=== PATIENT | male | born 1985 | race Caucasian/White ===

== ENCOUNTER 2018-03-22 16:06 | Outpatient (REF) | payer MEDICAID, SELFPAY ==
[2018-03-22 23:26] LABS: Lithium 0.41 mmol/L (0.60-1.20)
== END 2018-03-22 16:07 ==
LOC: LBN 16:06
PROVIDERS: PCP Internal Medicine; Visit Provider Psychiatry & Neurology Psychiatry
DX: F31.9 Bipolar disorder, unspecified (principal); Z51.81 Encounter for therapeutic drug level monitoring; Z79.899 Other long term (current) drug therapy
CPT/HCPCS: 80178

== ENCOUNTER 2018-04-01 09:09 | Outpatient (REF) | payer MEDICAID, SELFPAY ==
[2018-04-01 20:08] LABS: ALT 31 U/L (12-78); AST 18 U/L (15-37); Albumin 4.3 g/dL (3.4-5.0); Alkaline Phosphatase 71 U/L (46-116); Anion Gap 11.3 mmol/L (3-11); BUN 13 mg/dL (7-18); Bilirubin, Total 0.4 mg/dL (0.2-1.0); CO2 26.7 mmol/L (21.0-32.0); CREATININE 0.86 mg/dL (0.70-1.30); Calcium 8.9 mg/dL (8.5-10.1); Chloride 105 mmol/L (98-107); Cholesterol 192 mg/dL (50-200); Glucose 89 mg/dL (70-100); HDL Cholesterol 36 mg/dL (40-60); LDL CHOLESTEROL 141 mg/dL (<100); Potassium 4.2 mmol/L (3.5-5.1); Sodium 143 mmol/L (136-145); Total Protein 7.6 g/dL (6.4-8.2); Triglyceride 80 mg/dL (30-150)
[2018-04-01 21:01] LABS: Hemoglobin A1C 5.7 % (4.5-6.2)
== END 2018-04-01 09:10 ==
LOC: NCHCN 09:09
PROVIDERS: PCP Internal Medicine; Visit Provider Nurse Practitioner Family
DX: E78.5 Hyperlipidemia, unspecified (principal); E66.01 Morbid (severe) obesity due to excess calories
CPT/HCPCS: 80053; 80061; 83721; 83036

== ENCOUNTER 2018-10-20 08:52 | Outpatient (REF) | payer MEDICAID, SELFPAY ==
[2018-10-20 19:28] LABS: Lithium 0.63 mmol/L (0.60-1.20)
[2018-10-20 19:43] LABS: Anion Gap 7.9 mmol/L (3-11); BUN 14 mg/dL (7-18); CO2 27.1 mmol/L (21.0-32.0); CREATININE 0.98 mg/dL (0.70-1.30); Calcium 9.5 mg/dL (8.5-10.1); Chloride 105 mmol/L (98-107); Cholesterol 208 mg/dL (50-200); Glucose 120 mg/dL (70-100); HDL Cholesterol 37 mg/dL (40-60); LDL CHOLESTEROL 142 mg/dL (<100); Potassium 3.8 mmol/L (3.5-5.1); Sodium 140 mmol/L (136-145); TSH (W/Ref FT4) 1.84 uIU/mL (0.358-3.74); Triglyceride 109 mg/dL (30-150)
== END 2018-10-20 09:12 ==
LOC: NCHCN 08:52
PROVIDERS: Nurse Practitioner Family; PCP Internal Medicine; Visit Provider Internal Medicine
DX: F31.2 Bipolar disorder, current episode manic severe with psychotic features (principal); Z51.81 Encounter for therapeutic drug level monitoring; Z79.899 Other long term (current) drug therapy
CPT/HCPCS: 80048; 80061; 83721; 80178; 84443

== ENCOUNTER 2018-12-13 16:51 | Outpatient (REF) | payer MEDICAID, SELFPAY ==
[2018-12-13 18:31] LABS: HCT 42.1 % (40.0-50.0); HGB 14.6 g/dL (13.5-17.5); Lithium 0.45 mmol/L (0.60-1.20); Mean Corp. HGB Concentration 34.7 g/dL (32.0-36.0); Mean Corpuscular Hemoglobin 29.9 pg (27.0-33.0); Mean Corpuscular Volume 86.1 fL (80-95); Mean Platelet Volume 9.2 fL (8.0-11.0); Platelet Count 268 x1000/uL (130-400); RBC 4.89 m/cumm (4.50-6.00); RBC Distribution Width 12.6 % (11.8-14.1); White Blood Cell Count 8.73 k/cumm (4.4-10.8)
[2018-12-13 18:39] LABS: ALT 36 U/L (12-78); AST 16 U/L (15-37); Albumin 4.4 g/dL (3.4-5.0); Alkaline Phosphatase 65 U/L (46-116); Amylase 40 U/L (25-115); Anion Gap 10.5 mmol/L (3-11); BUN 16 mg/dL (7-18); Bilirubin, Total 0.3 mg/dL (0.2-1.0); CO2 24.5 mmol/L (21.0-32.0); CREATININE 1.01 mg/dL (0.70-1.30); Chloride 103 mmol/L (98-107); Glucose 105 mg/dL (70-100); Lipase 140 U/L (73-393); Potassium 3.3 mmol/L (3.5-5.1); Sodium 138 mmol/L (136-145); Total Protein 7.5 g/dL (6.4-8.2)
[2018-12-13 18:51] LABS: Calcium 9.1 mg/dL (8.5-10.1)
== END 2018-12-13 17:11 ==
LOC: NCHCN 16:51
PROVIDERS: PCP Internal Medicine; Visit Provider Nurse Practitioner Family
DX: F10.20 Alcohol dependence, uncomplicated (principal); Z51.81 Encounter for therapeutic drug level monitoring; E66.01 Morbid (severe) obesity due to excess calories
CPT/HCPCS: 80053; 83690; 85027; 80178; 82150

== ENCOUNTER 2019-10-05 09:01 | Outpatient (REF) | payer MEDICAID, SELFPAY ==
[2019-10-05 19:57] LABS: Anion Gap 9.6 mmol/L (3-11); BUN 18 mg/dL (7-18); CO2 27.4 mmol/L (21.0-32.0); CREATININE 0.87 mg/dL (0.70-1.30); Calcium 9.2 mg/dL (8.5-10.1); Chloride 106 mmol/L (98-107); Glucose 104 mg/dL (74-106); Sodium 143 mmol/L (136-145); TSH (W/Ref FT4) 1.65 uIU/mL (0.36-3.74)
[2019-10-06 09:22] LABS: Calculated LDL 147 mg/dL (<100); Cholesterol 221 mg/dL (<200); HDL Cholesterol 43 mg/dL (40-60); Triglyceride 159 mg/dL (<150)
== END 2019-10-05 09:21 ==
LOC: LBN 09:01
PROVIDERS: PCP Internal Medicine; Visit Provider Psychiatry & Neurology Psychiatry
DX: Z79.899 Other long term (current) drug therapy (principal); Z51.81 Encounter for therapeutic drug level monitoring; F31.2 Bipolar disorder, current episode manic severe with psychotic features
CPT/HCPCS: 80048; 80061; 80178; 84443

== ENCOUNTER 2020-06-25 09:55 | Outpatient (REF) | payer MEDICAID, SELFPAY ==
[2020-06-30 06:22] LABS: Patient Race White; SARS-CoV-2 RNA Undetected (Undetected); SARS-CoV-2 Specimen Source Nasal
== END 2020-06-25 10:15 ==
LOC: NCHCN 09:55
PROVIDERS: PCP Internal Medicine; Visit Provider Physician Assistant
DX: R05 Cough (principal)
CPT/HCPCS: U0003

== ENCOUNTER 2021-06-12 14:59 | Outpatient (REF) | payer MEDICAID, SELFPAY ==
[2021-06-12 19:59] LABS: Anion Gap 10.6 mmol/L (3-11); BUN 16 mg/dL (7-18); CO2 25.4 mmol/L (21.0-32.0); CREATININE 0.9 mg/dL (0.70-1.30); Calcium 9.3 mg/dL (8.5-10.1); Calculated LDL 167 mg/dL (<100); Chloride 105 mmol/L (98-107); Cholesterol 233 mg/dL (<200); Glucose 110 mg/dL (74-106); HDL Cholesterol 40 mg/dL (40-60); Potassium 3.8 mmol/L (3.5-5.1); Sodium 141 mmol/L (136-145); TSH 1.58 uIU/mL (0.36-3.74); Triglyceride 130 mg/dL (<150)
[2021-06-12 20:32] LABS: Lithium 0.6 mmol/l (0.6-1.2)
== END 2021-06-12 15:00 | disposition home or self-care (01) ==
LOC: NCHCN 14:59
PROVIDERS: PCP Internal Medicine; Visit Provider Physician Assistant
DX: E78.5 Hyperlipidemia, unspecified (principal); Z51.81 Encounter for therapeutic drug level monitoring; E66.01 Morbid (severe) obesity due to excess calories; F31.2 Bipolar disorder, current episode manic severe with psychotic features
CPT/HCPCS: 80048; 80061; 80178; 84443

== ENCOUNTER 2021-11-10 09:09 | Outpatient (REF) | payer MEDICAID, SELFPAY ==
[2021-11-10 19:32] LABS: Abs Immature Grans 0.04 10^3/uL (0.0-0.06); Absolute Basophil Count 0.02 10^3/uL (0.0-0.2); Absolute Eosinophil Count 0.17 10^3/uL (0.0-0.7); Absolute Lymphocyte Count 2.45 10^3/uL (1.2-3.4); Absolute Monocyte Count 0.55 10^3/uL (0.1-0.8); Absolute Neutrophil Count 3.63 10^3/uL (1.2-6.7); Basophils % 0.3; Eosinophils % 2.5; HCT 45.3 % (40.0-50.0); HGB 15.3 g/dL (13.5-17.5); Immature Grans % 0.6; Lymphocytes % 35.7; MCH 28.9 pg (27.0-33.0); MCHC 33.8 % (32.0-36.0); MCV 85.6 fL (80-95); MPV 9.5 fL (8.0-11.0); Neutrophils % 52.9; Nucleated RBC 0 %; Platelet Count 251 10^3/uL (130-400); RBC 5.29 10^6/uL (4.36-5.78); RDW 12.7 % (11.8-14.1); RDW-SD 39.5 fL; WBC 6.86 10^3/uL (4.4-10.8)
[2021-11-10 19:39] LABS: Hemoglobin A1C 5.6 % (<5.7)
[2021-11-10 20:19] LABS: Vitamin D 25 Total 18.3 ng/mL (30-100)
[2021-11-10 20:21] LABS: ALT 48 U/L (16-63); AST 18 U/L (15-37); Albumin 4.4 g/dL (3.4-5.0); Alkaline Phosphatase 67 U/L (46-116); Anion Gap 10.1 mmol/L (3-11); BUN 14 mg/dL (7-18); Bilirubin, Total 0.4 mg/dL (0.2-1.0); C-Reactive Protein 0.74 mg/dL (0.0-0.3); CO2 22.9 mmol/L (21.0-32.0); CREATININE 0.9 mg/dL (0.70-1.30); Calculated LDL 154 mg/dL (<100); Chloride 106 mmol/L (98-107); Cholesterol 229 mg/dL (<200); Ferritin 477 ng/mL (26-388); Folate 15.5 ng/mL (8.6-20.0); Glucose 114 mg/dL (74-106); HDL Cholesterol 46 mg/dL (40-60); Magnesium 2.3 mg/dL (1.8-2.4); Potassium 3.9 mmol/L (3.5-5.1); Sodium 139 mmol/L (136-145); TSH 2.56 uIU/mL (0.36-3.74); Total Protein 7.8 g/dL (6.4-8.2); Triglyceride 149 mg/dL (<150); Vitamin B12 496 pg/mL (193-986)
[2021-11-10 20:38] LABS: FREE T4 1.15 ng/dL (0.76-1.46)
[2021-11-11 17:15] LABS: Lithium (UVM) 0.6 mmol/L (See Note)
[2021-11-11 17:39] LABS: T3,Free 3.7 pg/mL (2.8-5.3)
== END 2021-11-10 09:10 | disposition home or self-care (01) ==
LOC: LBN 09:09
PROVIDERS: PCP Internal Medicine; Visit Provider Psychiatry & Neurology Psychiatry
DX: F31.2 Bipolar disorder, current episode manic severe with psychotic features (principal); Z79.899 Other long term (current) drug therapy
CPT/HCPCS: 80053; 80061; 82306; 80178; 82607; 82728; 82746; 83036; 83735; 84439; 84443; 84481; 84630; 85025; 86140

== ENCOUNTER 2023-01-26 18:47 | Emergency (ER) | payer MEDICAID, SELFPAY ==
[2023-01-26 18:49] VITALS: BP 175/93; PULSE 105; RESP 18; TEMP 36.9; O2SAT 98
--- NOTE | 2023-01-26 20:10 | ED.GENADUL_ITS ---
Discharge Plan Disposition Patient Disposition: Home Discharge Details Clinical Impression: Right facial swelling Primary Care Provider: Jermaine Wolfe ED Provider: Primo Hanna Home Meds and New Rx's Prescriptions: New ketorolac 10 mg tablet 10 mg PO TID PRN (Reason: pain) Qty: 15 0RF Continued lithium carbonate 300 mg tablet extended release 1,200 mg PO DAILY olanzapine [Zyprexa] 10 mg tablet 10 mg PO DAILY lorazepam 2 MG tablet 2 mg PO BID Patient Comments: 12/01/17-0.5mg PO BID per pt. Discontinued oxycodone 5 mg tablet 5 - 10 mg PO Q4H MDD 10 PRN (Reason: pain) Qty: 50 0RF Patient Comments: patient reports he does not take this anymore. Discharge Instructions Instructions: Parotid Duct Obstruction (ED) Additional Instructions: Please continue to take your Metronidazole and Augmentin as prescribed. You may use the pain medication but please do not take any lblr-fgb-orgvdmv NSAIDs with this as this could cause significant complications. We have placed a referral for you to follow-up with the ENT and please call their office tomorrow afternoon for arrangement of your follow-up appointment. If you have any new or significant worsening of symptoms return to the emergency department immediately for reassessment You did have slight increase of your liver function test which at this time are nonconcerning but please follow-up with your primary care provider for reassessment of these labs. Referrals: [facility] [Provider Group] - 2 days Discharge Data Discharge Date/Time-TO BE ENTERED AT DEPARTURE: 01/26/23 23:48 Medical Decision Making <Primo Hanna NP - Last Filed: 01/27/23 18:12> Patient presenting to the emergency department for chief complaint of right facial swelling. He states approximately 3 weeks ago he had his wisdom tooth removed on the right lower. He had typical healing for the first couple days and then noticed significant increase in pain and discomfort with continued swelling. Over the last week or so he has had noted increase in swelling and redness to the right side of his face. Patient denies fever chills, does state some associated ear pain, no swelling to tongue, lips or mouth, no difficulty breathing swallowing, no headaches no other symptoms noted. Physical exam does show significant erythema warmth and swelling to right parotid gland ENT exam is otherwise unremarkable. No palpable abscess noted around dental extraction no swelling to the tongue. no signs of deep neck space infection ( Retropharyngeal abscess, Luke's angina, Parapharyngeal space infection, Peritonsillar Abscess ([employer])) or Epiglottitis. Pt non toxic and stable. Given that patient is already been on antibiotics and switched to Augmentin and Flagyl which she has taken for 5 days not seen any improvement we will plan on checking patient's labs and CT imaging. Pending results we will give patient ketorolac and Decadron Reviewed patient's labs and CBC is completely normal and unremarkable, CMP shows slightly low potassium at 3.1 which we will orally replete otherwise patient has slight elevation of glucose AST and ALT along with total protein. Patient informed that these were elevated but I do not feel that this is contributing to patient's cause to be a emergency department will have patient follow-up with primary care provider due to elevated LFTs Reviewed CT imaging along with radiologist interpretation that shows no acute findings. Did reassess patient and he noted significant improvement with the ketorolac and Decadron. I feel this is reassuring but still odd of what is causing patient's symptoms. Given duration of symptoms being greater than 3 weeks will refer patient to ENT but will have patient continue his antibiotics. After discussion of diagnosis and plan of care patient has no further needs, questions, or concerns and states clear understanding to return to the emergency department for any worsening symptoms. This documentation was generated using [employer] dictation system, please disregard any oddities of phrase or misspellings. Imaging Data Radiologic Study: Imaging: CT Scan Radiologist's impression: dottie(s) PROCEDURE INFORMATION: Exam: CT Neck With Contrast Exam date and time: 01/26/2023 9:50 PM Age: 37 years old Clinical indication: Pain; Other: R sided facial swelling; Other: Right facial from ear/jaw area into neck; Prior surgery; Surgery date: <1 month; Surgery type: Tooth pulled; Patient HX: Right sided facial swelling- ? of parotiditis TECHNIQUE: Imaging protocol: Computed tomography of the neck with contrast. Radiation optimization: All CT scans at this facility use at least one of these dose optimization techniques: automated exposure control; mA and/or kV adjustment per patient size (includes targeted exams where dose is matched to clinical indication); or iterative reconstruction. Contrast material: OMNIPAQUE 350; Contrast volume: 100 ml; Contrast route: INTRAVENOUS (IV); COMPARISON: No relevant prior studies available. FINDINGS: Paranasal sinuses: Mucosal polyp versus retention cyst within left maxillary sinus. Otherwise, paranasal sinuses clear. Pharynx: Unremarkable. No significant tonsillar enlargement. Larynx: Unremarkable. Epiglottis is normal. Prevertebral and retropharyngeal spaces: Unremarkable. Salivary glands: Normal. Glands are normal in size. Thyroid: Normal. No enlarged or calcified nodules. Lymph nodes: Unremarkable. No lymphadenopathy. Trachea: Visualized trachea is unremarkable. Lungs: Unremarkable as visualized. Bones/joints: Unremarkable. No acute fracture. Soft tissues: Unremarkable. No significant soft tissue swelling. IMPRESSION: No masses or collections identified. No evidence for parotitis. Lab Data Lab results reviewed: Yes I reviewed the patient's lab results. HPI <Primo Hanna NP - Last Filed: 01/27/23 18:12> General Mode of arrival: ambulatory . Date/Time Provider Initiated Documentation: 01/26/23 20:10 . Limitations to Documentation: no limitations . Information obtained by: patient and RN notes reviewed . History of Present Illness 37 year old M presents to the emergency department with the chief complaint of Right-sided facial pain and swelling, described as moderate, Quality is described as aching, and is localized to the face. Patient started experiencing this week(s) (3) and it has been constant. No relieving factors improve symptom(s), Other factors that worsen symptoms (Dental tooth extraction) . Patient did receive the following treatments prior to arrival, other (Antibiotics) Related Data Home Medications Medication Instructions Recorded Confirmed lorazepam 2 mg tablet 2 mg PO BID 09/25/13 01/26/23 lithium carbonate 300 mg 1,200 mg PO DAILY 05/07/22 01/26/23 tablet,extended release olanzapine 10 mg tablet (Zyprexa) 10 mg PO DAILY 05/07/22 01/26/23 ketorolac 10 mg tablet 10 mg PO TID PRN pain #15 tabs 01/26/23 Previous Rx's Medication Instructions Recorded ketorolac 10 mg tablet 10 mg PO TID PRN pain #15 tabs 01/26/23 Allergies Allergy/AdvReac Type Severity Reaction Status Date / Time banana [Banana] AdvReac unknown Unverified 01/26/23 21:13 <Moriah Matias MD - Last Filed: 01/27/23 01:49> HPI Narrative: Pt. not seen by me. General Stated Complaint: DentalOral SHAVON: 4 Review of Systems <Primo Hanna NP - Last Filed: 01/27/23 18:12> Constitutional Constitutional: Denies chills, Denies fever(s) and Denies headache(s) ENT Ears, Nose, Mouth, and Throat: Reports as per HPI, Denies bleeding gums, Denies change in voice, Reports dental pain, Denies ear discharge, Reports otalgia, Reports facial pain, Denies headache(s), Denies hoarseness, Reports mouth pain, Denies neck pain and Denies sinus pain Cardiovascular Cardiovascular: Denies chest pain and Denies dyspnea Respiratory Respiratory: Denies cough and Denies dyspnea Gastrointestinal Gastrointestinal: Denies abdominal pain Musculoskeletal Musculoskeletal: Denies neck pain Integumentary/Breasts Skin/Breast: Reports erythema and Reports skin swelling Neurologic Neurologic: Denies headache(s) PFSH <Primo Hanna NP - Last Filed: 01/27/23 18:12> All Active Problems Right facial swelling (Acute) Testicular pain (Acute) Pain (Acute) Social History Smoking/Tobacco Use Status: Former Tobacco Use Smoking risk assessment performed?: Yes Alcohol Intake: current Alcohol Intake frequency: a few times a week Drug use: Daily Substance use type: does not use Do you feel safe at home: Yes Do you feel safe in your relationship?: Yes Exam <Primo Hanna NP - Last Filed: 01/27/23 18:12> Const General: cooperative, healthy appearing, comfortable, no acute distress and not ill appearing Orientation: alert, awake and oriented x3 HENMT Head: normal to inspection and normocephalic Ears: hearing grossly normal bilaterally, external ears normal, TM's normal bilaterally and mastoids normal General nose exam: external nose normal and nares normal Face and sinus: erythema on the right (Parotid gland) and edema on the right (Parotid gland) Mouth: oral mucosae normal, lip normal, tongue normal, no audible dysphonia, no drooling and no trismus Throat: uvula midline, no peritonsillar masses and other (Recent extraction tooth #32) Neck Neck: normal visual inspection, full ROM and no meningeal signs Resp Effort & Inspection: normal respiratory effort, able to speak in complete sentences and no stridor Auscultation: clear to auscultation bilaterally Cardio Rate: regular rate Rhythm: regular rhythm Heart Sounds: S1 normal and S2 normal Skin General skin exam: no rashes or lesions noted <Moriah Matias MD - Last Filed: 01/27/23 01:49> Vital Signs Vital signs: Vital Signs Temperature 36.9 C 01/26/23 18:49 Pulse 105 H 01/26/23 18:49 Respiratory Rate 18 01/26/23 18:49 Blood Pressure 175/93 H 01/26/23 18:49 Pulse Oximetry 98 01/26/23 18:49 Temperature 36.9 C 01/26/23 18:49 Temperature Source Oral 01/26/23 18:49 Pulse 105 H 01/26/23 18:49 Respiratory Rate 18 01/26/23 18:49 Respiratory Effort Normal 01/26/23 18:52 Blood Pressure 175/93 H 01/26/23 18:49 Pulse Oximetry 98 01/26/23 18:49 Oxygen Delivery Method Room Air 01/26/23 18:49 Oxygen Flow Rate 0 01/26/23 18:49 Pain Level 7 01/26/23 18:49 PAWSS <Primo Hanna NP - Last Filed: 01/27/23 18:12> Result: 0 <Moriah Matias MD - Last Filed: 01/27/23 01:49> Have you Been Recently Intoxicated or Drunk Within the Last 30 days?: No Have you Ever Experienced Previous Episodes of Alcohol Withdrawal?: No Have you ever Experienced Withdrawal Seizures?: No Have you ever Experienced Delirium Tremens(DT)s?: No Have you ever undergone Alcohol Rehabilitation Treatment (i.e, inpt ot outpatient treatment programs)?: No Have you ever Experienced Blackouts?: No Have you ever Combined Alcohol with other Downers within the last 90 days?: No Have you ever Combined Alcohol with any other Substance of Abuse during the last 90 days?: No Positive Blood Alcohol level on Presentation? [PCS.BAL]: No Evidence of Increased Autonomic Activity (i.e. HR>120, tremor, sweating, agitation, nausea)?: No Result: 0
--- NOTE | 2023-01-26 21:07 | DI.CT_ITS ---
Exam(s) CT NECK W EXAM: CT NECK W INDICATION: right sided facial swelling- ? of parotiditis. COMPARISON: No exams were available for comparison TECHNIQUE: FINDINGS: VISUALIZED PARANASAL SINUSES: There is a prominent post inflammatory retention cyst in the left maxil fina sinus, not associated with a fluid level. Remainder of the paranasal sinuses are unremarkable. NASOPHARYNX: Unremarkable ORODENTAL: Unremarkable. OROPHARYNX: Unremarkable. No masses evident. HYPOPHARYNX: Unremarkable. Valleculae and epiglottis and aryepiglottic folds appear normal. VOCAL CORDS: Unremarkable. No masses evident. Subglottic airway appears unremarkable. THYROID GLAND: Unremarkable. Normal size and no obvious nodules. SALIVARY GLANDS: Unremarkable. No significant findings in the parotid and submandibular glands. LYMPH NODES: There is no adenopathy evident in the neck and supraclavicular regions. OTHER: VISUALIZED LUNG APICES: No significant findings. IMPRESSION: 1. No evidence abnormal mass, fluid collection, nor lymphadenopathy in the neck. 2. Salivary glands appear unremarkable, as per request. RADIATION DOSE DELIVERED: 762.07mGy.cm Total DLP DATA REPOSITORY: All CT scans at this facility are submitted to the National Radiology Data Registry (NRDR) Dose Index Registry (DIR) with the [employer] (ACR). RADIATION OPTIMIZATION: All CT scans at this facility use at least one of these dose optimization te chniques: automated exposure control; mA and/or kV adjustment per patient size (includes targeted exa ms where dose is matched to clinical indication); or iterative reconstruction.
[2023-01-26] MEDS: Dexamethasone 10 MG/ML VIAL IVP (21:44)
[2023-01-26] MEDS: Ketorolac 15 MG/ML VIAL IVP (21:44)
[2023-01-26] MEDS: Normal Saline - Diluent 50 ML VIAL IJ (21:49)
[2023-01-26 21:54] LABS: Abs Immature Grans 0.04 10^3/uL (0.0-0.06); Absolute Basophil Count 0.04 10^3/uL (0.0-0.2); Absolute Eosinophil Count 0.14 10^3/uL (0.0-0.7); Absolute Lymphocyte Count 2.42 10^3/uL (1.2-3.4); Absolute Monocyte Count 0.61 10^3/uL (0.1-0.8); Absolute Neutrophil Count 6.17 10^3/uL (1.2-6.7); Basophils % 0.4; Eosinophils % 1.5; HCT 44.5 % (40.0-50.0); HGB 15.3 g/dL (13.5-17.5); Immature Grans % 0.4; Lymphocytes % 25.7; MCH 28.8 pg (27.0-33.0); MCHC 34.4 % (32.0-36.0); MCV 84 fL (80-95); MPV 8.3 fL (8.0-11.0); Monocytes % 6.5; Neutrophils % 65.5; Platelet Count 271 10^3/uL (130-400); RBC 5.31 10^6/uL (4.36-5.78); RDW 12.4 % (11.8-14.1); RDW-SD 37.2 fL; WBC 9.42 10^3/uL (4.4-10.8)
[2023-01-26] MEDS: Omnipaque 350 MG/ML 100 ML BTL IJ (22:00)
[2023-01-26] MEDS: Normal Saline Flush 10 ML SYR IVP (22:06)
[2023-01-26 22:15] LABS: ALT 107 U/L (16-63); AST 53 U/L (15-37); Albumin 4.2 g/dL (3.4-5.0); Alkaline Phosphatase 71 U/L (46-116); Anion Gap 9.5 mmol/L (3-11); BUN 14 mg/dL (7-18); Bilirubin, Total 0.3 mg/dL (0.2-1.0); CO2 23.5 mmol/L (21.0-32.0); Calcium 9.4 mg/dL (8.5-10.1); Chloride 104 mmol/L (98-107); Estimated GFR 100.03 (mL/min/1.73m2); Glucose 144 mg/dL (74-106); Potassium 3.1 mmol/L (3.5-5.1); Sodium 137 mmol/L (136-145); Total Protein 8.5 g/dL (6.4-8.2)
[2023-01-26 22:45] VITALS: BP 168/80; PULSE 92; RESP 16; O2SAT 99
--- NOTE | 2023-01-26 23:25 | DI.VRAD_ITS ---
PROCEDURE INFORMATION: Exam: CT Neck With Contrast Exam date and time: 01/26/2023 9:50 PM Age: 37 years old Clinical indication: Pain; Other: R sided facial swelling; Other: Right facial from ear/jaw area into neck; Prior surgery; Surgery date: <1 month; Surgery type: Tooth pulled; Patient HX: Right sided facial swelling- ? of parotiditis TECHNIQUE: Imaging protocol: Computed tomography of the neck with contrast. Radiation optimization: All CT scans at this facility use at least one of these dose optimization techniques: automated exposure control; mA and/or kV adjustment per patient size (includes targeted exams where dose is matched to clinical indication); or iterative reconstruction. Contrast material: OMNIPAQUE 350; Contrast volume: 100 ml; Contrast route: INTRAVENOUS (IV); COMPARISON: No relevant prior studies available. FINDINGS: Paranasal sinuses: Mucosal polyp versus retention cyst within left maxillary sinus. Otherwise, paranasal sinuses clear. Pharynx: Unremarkable. No significant tonsillar enlargement. Larynx: Unremarkable. Epiglottis is normal. Prevertebral and retropharyngeal spaces: Unremarkable. Salivary glands: Normal. Glands are normal in size. Thyroid: Normal. No enlarged or calcified nodules. Lymph nodes: Unremarkable. No lymphadenopathy. Trachea: Visualized trachea is unremarkable. Lungs: Unremarkable as visualized. Bones/joints: Unremarkable. No acute fracture. Soft tissues: Unremarkable. No significant soft tissue swelling. IMPRESSION: No masses or collections identified. No evidence for parotitis. The findings were verbally communicated via telephone conference with VAZQUEZ MENDOZA at 11:25 PM EDT on 01/26/2023. The findings were acknowledged and understood. Dictated and Authenticated by: Bill Rae MD. Ordering:GILDA Tillman MD
[2023-01-26] MEDS: Potassium Chloride 20 MEQ TABCR 40 MEQ PO (23:27)
--- NOTE | 2023-01-27 00:26 | NUR.NOTE ---
Referral faxed to [facility] to f/u within the next couple of days for persistent facial swelling on antibiotics.Nursing Note:
== END 2023-01-26 23:48 | disposition home or self-care (01) ==
PROVIDERS: Emergency Provider Nurse Practitioner Family; PCP Internal Medicine
DX: R22.0 Localized swelling, mass and lump, head (principal)
CPT/HCPCS: 36415; 70491; 80053; 96374; 96375; 99285; 85025; 99284; J1100; J1885; J3490

== ENCOUNTER 2023-04-02 18:22 | Outpatient (REF) | payer MEDICAID, SELFPAY ==
--- OUTSIDE RECORDS SUMMARY | 2023-04-02 18:24 | XMS_ITS | Continuity of Care Document ---
Author Name Unknown Organization [facility] Address [address] [place] [address] Care Team Providers Care Display Fabricator Name Role Phone [facility] Primary [facility] Physician Encounter [facility] Date(s): 05/10/22 - 05/10/[address] [id number] Encounter Diagnosis Otalgia of left ear(Discharge Diagnosis) - 05/10/22 Low back strain(Discharge Diagnosis) - 05/10/22 Discharge Disposition: Home Attending Physician: James Yang MD Admitting Physician: James Yang MD Allergies, Adverse Reactions, Alerts No Known Medication Allergies Substance Reaction Severity Status Banana Unknown Active Functional Status 05/10/22 Family Member Travel History No recent t ravel Recent Travel History No recent travel Other exposure to Infectious Disease Non e Medications !-Augmentin 875 mg-125 mg oral tablet 1 tab, Oral, every 12 hr, # 20 tab, 0 Refill(s), Pharmacy: [facility], 183, cm, 05/10/22 20:32:00 EDT, Height/Length Dosing, 147.42, kg, 05/10/22 20:32:00 EDT, Weight Dosing Start Date: 05/10/22 Stop Date: 05/20/22 Status: Ordered lithium 0 Refill(s) Start Date: 05/10/22 Status: Ordered LORazepam 0 Refill(s) Start Date: 05/10/22 Status: Ordered Medrol 4 mg oral tablet 1 packets, Oral, Daily, as directed on package labeling, # 21 tab, 0 Refill(s), Pharmacy: [facility], 183, cm, 05/10/22 20:32:00 EDT, Height/Length Dosing, 147.42, kg, 05/10/22 20:32:00 EDT, Weight Dosing Start Date: 05/10/22 Stop Date: 05/16/22 Status: Ordered ZyPREXA 0 Refill(s) Start Date: 05/10/22 Status: Ordered Problem List No Known Problems Vital Signs Most recent to oldest [Reference Range]: 1 Temperature Temporal Artery [36-38 Deg C ] 37 Deg C (05/10/22 8:16 PM) Peripheral Pulse Rate [60-100 bpm] 89 bp m (05/10/22 8:16 PM) Respiratory Rate [12-24 br/min] 18 br/mi n (05/10/22 8:16 PM) Blood Pressure [90-140/60-90 mmHg] 143/7 1mmHg *HI* (05/10/22 8:16 PM) Weight Dosing 147.42 kg (05/10/22 8:32 PM) Weight Estimated 147.42 kg (05/10/22 8:16 PM) Height/Length Dosing 183.000 cm (05/10/22 8:32 PM) Height/Length Estimated 183.000 cm (05/10/22 8:16 PM) Social History Social History Type Response Tobacco Never tobacco user T obacco Use:. Sex Male Hospital Discharge Instructions Patient Education 05/10/2022 19:45:24 Lumbar Strain Lumbar Strain A lumbar strain, which is sometimes called a low-back strain, is a stretch or tear in a muscle or the strong cords of tissue that attach muscle to bone (tendons) in the lower back (lumbar spine). This type of injury occurs when muscles or tendons are torn or are stretched beyond their limits. Lumbar strains can range from mild to severe. Mild strains may involve stretching a muscle or tendon without tearing it. These may heal in 1???2 weeks. More severe strains involve tearing of muscle fibers or tendons. These will cause more pain and may take 6???8 weeks to heal. What are the causes? This condition may be caused by: ??? Trauma, such as a fall or a hit to the body. ??? Twisting or overstretching the back. This may result from doing activities that need a lot of energy, such as lifting heavy objects. What increases the risk? This injury is more common in: ??? Athletes. ??? People with obesity. ??? People who do repeated lifting, bending, or other movements that involve their back. What are the signs or symptoms? Symptoms of this condition may include: ??? Sharp or dull pain in the lower back that does not go away. The pain may extend to the buttocks. ??? Stiffness or limited range of motion. ??? Sudden muscle tightening (spasms). How is this diagnosed? This condition may be diagnosed based on: ??? Your symptoms. ??? Your medical history. ??? A physical exam. ??? Imaging tests, such as: ??? X-rays. ??? MRI. How is this treated? Treatment for this condition may include: ??? Rest. ??? Applying heat and cold to the affected area. ??? Etgq-yrm-dpijfqj medicines to help relieve pain and inflammation, such as NSAIDs. ??? Prescription pain medicine and muscle relaxants may be needed for a short time. ??? Physical therapy. Follow these instructions at home: Managing pain, stiffness, and swelling ??? If directed, put ice on the injured area during the first 24 hours after your injury. ??? Put ice in a plastic bag. ??? Place a towel between your skin and the bag. ??? Leave the ice on for 20 minutes, 2???3 times a day. ??? If directed, apply heat to the affected area as often as told by your health care provider. Usethe heat source that your health care provider recommends, such as a moist heat pack or a heating pad. ??? Place a towel between your skin and the heat source. ??? Leave the heat on for 20???30 minutes. ??? Remove the heat if your skin turns bright red. This is especially important if you are unable to feel pain, heat, or cold. You may have a greater risk of getting burned. Activity ??? Rest and return to your normal activities as told by your health care provider. Ask your healthcare provider what activities are safe for you. ??? Do exercises as told by your health care provider. Medicines ??? Take pbhu-awd-gjitaty and prescription medicines only as told by your health care provider. ??? Ask your health care provider if the medicine prescribed to you: ??? Requires you to avoid driving or using heavy machinery. ??? Can cause constipation. You may need to take these actions to prevent or treat constipation: ??? Drink enough fluid to keep your urine pale yellow. ??? Take dkiq-uln-znwgbhf or prescription medicines. ??? Eat foods that are high in fiber, such as beans, whole grains, and fresh fruits and vegetables. ??? Limit foods that are high in fat and processed sugars, such as fried or sweet foods. Injury prevention To prevent a future low-back injury: ??? Always warm up properly before physical activity or sports. ??? Cool down and stretch after being active. ??? Use correct form when playing sports and lifting heavy objects. Bend your knees before you liftheavy objects. ??? Use good posture when sitting and standing. ??? Stay physically fit and keep a healthy weight. ??? Do at least 150 minutes of moderate-intensity exercise each week, such as brisk walking or water aerobics. ??? Do strength exercises at least 2 times each week. General instructions ??? Do not use any products that contain nicotine or tobacco, such as cigarettes, e-cigarettes, andchewing tobacco. If you need help quitting, ask your health care provider. ??? Keep all follow-up visits as told by your health care provider. This is important. Contact a health care provider if: ??? Your back pain does not improve after 6 weeks of treatment. ??? Your symptoms get worse. Get help right away if: ??? Your back pain is severe. ??? You are unable to stand or walk. ??? You develop pain in your legs. ??? You develop weakness in your buttocks or legs. ??? You have difficulty controlling when you urinate or when you have a bowel movement. ??? You have frequent, painful, or bloody urination. ??? You have a temperature over 101.0??F (38.3??C) Summary ??? A lumbar strain, which is sometimes called a low-back strain, is a stretch or tear in a muscle or the strong cords of tissue that attach muscle to bone (tendons) in the lower back (lumbar spine). ??? This type of injury occurs when muscles or tendons are torn or are stretched beyond their limits. ??? Rest and return to your normal activities as told by your health care provider. If directed, apply heat and ice to the affected area as often as told by your health care provider. ??? Take eoom-yqz-nefbvoh and prescription medicines only as told by your health care provider. ??? Contact a health care provider if you have new or worsening symptoms. This information is not intended to replace advice given to you by your health care provider. Make sure you discuss any questions you have with your health care provider. Document Revised: 06/01/2019 Document Reviewed: 06/01/2019 [employer] Patient Education ?? 2021 [employer]. Follow Up Care 05/10/2022 20:16:43 With:Jermaine Alvarenga MD Address: [place] [address]- When:2 to 4 days Comments:For any persistent symptoms Patient Care team information Personnel Name: Jermaine Alvarenga MD Address: Address: [address]
--- OUTSIDE RECORDS SUMMARY | 2023-04-02 18:24 | XMS_ITS | Continuity of Care Document ---
Author Name Unknown Organization 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 Role Phone au [facility] Primary [facility] Physician Encounter [facility] Date(s): 06/15/22 - 06/15/[address] [id number] Discharge Disposition: Home or Self Care Attending Physician: Nicolas Flower MD Admitting Physician: Nicolas Flower MD Referring Physician: Nicolas Flower MD Allergies, Adverse Reactions, Alerts No Known Medication Allergies Substance Reaction Severity Status Banana Unknown Active Assessment and Plan Diagnostic Tests Pending * Homocysteine, Total, P JOSÉ 06/15/22 Medications !-Augmentin 875 mg-125 mg oral tablet 1 tab, Oral, every 12 hr, # 20 tab, 0 Refill(s), Pharmacy: [id number], 183, cm, 05/10/22 20:32:00 EDT, Height/Length Dosing, 147.42, kg, 05/10/22 20:32:00 EDT, Weight Dosing Start Date: 05/10/22 Stop Date: 05/20/22 Status: Ordered lithium 0 Refill(s) Start Date: 05/10/22 Status: Ordered LORazepam 0 Refill(s) Start Date: 05/10/22 Status: Ordered Medrol 4 mg oral tablet 1 packets, Oral, Daily, as directed on package labeling, # 21 tab, 0 Refill(s), Pharmacy: [id number], 183, cm, 05/10/22 20:32:00 EDT, Height/Length Dosing, 147.42, kg, 05/10/22 20:32:00 EDT, Weight Dosing Start Date: 05/10/22 Stop Date: 05/16/22 Status: Ordered ZyPREXA 0 Refill(s) Start Date: 05/10/22 Status: Ordered Problem List No Known Problems Results Laboratory List Name Date CBC w/ Diff 06/15/22 Comprehensive Metabolic Panel 06/15/22 Folate Level 06/15/22 Free T4 06/15/22 Hemoglobin A1c 06/15/22 Lipid Panel 06/15/22 Fries Level 06/15/22 Magnesium Level 06/15/22 Thyroid Stimulating Hormone 06/15/22 Vitamin B12 Level 06/15/22 Automated Diff 06/15/22 Most recent to oldest [Reference Range]: 1 WBC [5.0-10.0 x10^3/mcL] 8.2 x10^3/mcL (06/15/22 9:39 AM) RBC [4.6-6.0 x10^6/mcL] 5.1 x10^6/mcL (06/15/22 9:39 AM) Neutro Auto [40.0-75.0 %] 58.0 % (06/15/22 9:39 AM) Lymph Auto [20.0-50.0 %] 32.7 % (06/15/22 9:39 AM) Early Auto [2.0-15.0 %] 6.5 % (06/15/22 9:39 AM) Basophil Auto [0.0-1.0 %] 0.5 % (06/15/22 9:39 AM) BUN [7-18 mg/dL] 18 mg/dL (06/15/22 9:39 AM) Cholesterol Total [50-200 mg/dL] 208 mg/ dL *HI* (06/15/22 9:39 AM) LDL [0-130 mg/dL] 142 mg/dL *HI* (06/15/22 9:39 AM) Glucose Level [74-106 mg/dL] 101 mg/dL (06/15/22 9:39 AM) Potassium Level [3.5-5.1 mmol/L] 4.1 mmo l/L (06/15/22 9:39 AM) MCV [80.0-103.0 fL] 85.7 fL (06/15/22 9:39 AM) HDL [40-60 mg/dL] 41 mg/dL (06/15/22 9:39 AM) T4 Free [0.76-1.46 ng/dL] 1.02 ng/dL (06/15/22 9:39 AM) AST [15-37 unit/L] 15 unit/L (06/15/22 9:39 AM) ALT [16-63 unit/L] 41 unit/L (06/15/22 9:39 AM) MCHC [31.0-35.0 g/dL] 34.4 g/dL (06/15/22 9:39 AM) Sodium Level [136-145 mmol/L] 138 mmol/L (06/15/22 9:39 AM) Folate Level [8.6-58.9 ng/mL] 15.0 ng/mL (06/15/22:39 AM) Hct [41.0-51.0 %] 43.9 % (06/15/22 9:39 AM) Triglycerides [0-150 mg/dL] 123 mg/dL (06/15/22 9:39 AM) Calcium Level [8.5-10.1 mg/dL] 9.0 mg/dL (06/15/22 9:39 AM) Albumin Level [3.4-5.0 g/dL] 4.4 g/dL (06/15/22 9:39 AM) Protein Total [6.4-8.2 g/dL] 7.9 g/dL (06/15/22 9:39 AM) MCH [26.0-32.0 pg] 29.5 pg (06/15/22 9:39 AM) Magnesium Level [1.8-2.4 mg/dL] 2.2 mg/d L (06/15/22 9:39 AM) Neutro Absolute 4.8 x10^3/mcL *NA* (06/15/22 9:39 AM) Bilirubin Total [0.2-1.0 mg/dL] 0.4 mg/d L (06/15/22 9:39 AM) Hgb [14.0-18.0 g/dL] 15.1 g/dL (06/15/22 9:39 AM) B12 Level [193-986 pg/mL] 673 pg/mL (06/15/22 9:39 AM) Alk Phos [46-146 unit/L] 61 unit/L (06/15/22 9:39 AM) Platelets [130-450 x10^3/mcL] 243 x10^3/ mcL (06/15/22 9:39 AM) Fries Level [0.60-1.20 mmol/L] 0.63 mm ol/L (06/15/22 9:39 AM) CO2 [21-32 mmol/L] 27 mmol/L (06/15/22 9:39 AM) TSH [0.358-3.740 mcIntlUnit/mL] 1.968 mc IntlUnit/mL (06/15/22 9:39 AM) eGFR Non-AA [>=60] 108 (06/15/22 9:39 AM) eGFR AA [>=60] 108 (06/15/22 9:39 AM) Hemoglobin A1c [4.0-6.0 %] 5.6 % (06/15/22 9:39 AM) Chloride Level [98-107 mmol/L] 104 mmol/ L (06/15/22 9:39 AM) RDW-CV [11.5-17.0 %] 12.4 % (06/15/22 9:39 AM) Imm Gran Auto [0.0-0.9 %] 0.7 % (06/15/22 9:39 AM) Creatinine Level [0.70-1.30 mg/dL] 0.94 mg/dL (06/15/22 9:39 AM) Eos, Auto [1.0-6.0 %] 1.6 % (06/15/22 9:39 AM) Social History Social History Type Response Tobacco Never tobacco user T obacco Use:. Sex Male Patient Care team information Personnel Name: Jermaine Alvarenga MD Address: Address: [id number] [place] [address]
[2023-04-02 19:25] LABS: Lithium 0.4 mmol/l (0.6-1.2)
[2023-04-02 19:44] LABS: Hemoglobin A1C 5.6 % (<5.7)
== END 2023-04-02 18:23 | disposition home or self-care (01) ==
LOC: NCHCN 18:22
PROVIDERS: PCP Internal Medicine; Visit Provider Physician Assistant
DX: R63.5 Abnormal weight gain (principal); Z79.899 Other long term (current) drug therapy; Z51.81 Encounter for therapeutic drug level monitoring; F31.89 Other bipolar disorder
CPT/HCPCS: 80178; 83036

== ENCOUNTER → 2023-05-05 08:41 | Outpatient (CLI) | payer MEDICAID, SELFPAY ==
--- NOTE | 2023-05-05 | DI.US_ITS ---
Exam(s) US LOWER EXTREMITY VENOUS RT EXAM: US LOWER EXTREMITY VENOUS RT CLINICAL HISTORY: RT LEG SWELLING, R22.41,? DVT. TECHNIQUE: Lower extremity venous ultrasound performed using grayscale, color-flow, and spectral Do ppler analysis. COMPARISON: No exams were available for comparison FINDINGS: The common femoral, femoral and popliteal veins demonstrate normal compressibility, augmentation, and color Doppler. The posterior tibial veins are patent. No saphenous vein thrombosis or other superfi cial venous thrombosis is seen. No hematoma or Meza's cyst is seen. IMPRESSION: Negative lower extremity ultrasound. No evidence of DVT. DATA REPOSITORY:
== END ==
PROVIDERS: PCP Internal Medicine; Visit Provider Physician Assistant
DX: R22.41 Localized swelling, mass and lump, right lower limb (principal)
CPT/HCPCS: 93971

== ENCOUNTER 2023-05-14 16:45 | Emergency (ER) | payer MEDICAID, SELFPAY ==
[2023-05-14 16:53] VITALS: BP 168/101; PULSE 96; RESP 18; TEMP 37.2; O2SAT 99
[2023-05-14] MEDS: Cyclobenzaprine 10 MG TAB, 3 TABS/BTL PO (20:27)
--- NOTE | 2023-05-15 17:01 | W.ED.GENAD ---
Discharge Plan Disposition Patient Disposition: Home Discharge Details Clinical Impression: Pain in lower jaw Primary Care Provider: Jermaine Wolfe ED Provider: Josey Lucas Home Meds and New Rx's Prescriptions: New cyclobenzaprine 10 mg tablet 10 mg PO TID PRNQty: 20 0RF Continued lithium carbonate 300 mg tablet extended release 1,200 mg PO DAILY olanzapine [Zyprexa] 10 mg tablet 10 mg PO DAILY lorazepam 2 MG tablet 2 mg PO BID Patient Comments: 12/01/17-0.5mg PO BID per pt. methylprednisolone 4 mg Tablet Discharge Instructions Additional Instructions: Continue taking your methylprednisone Take the Flexeril as prescribed, you may take it 3 times a day but do not operate your vehicle for 8 hours after taking this medication Follow-up with your dentist Return earlier with new or worsening complaints Referrals: Jermaine Wolfe [Primary Care Provider] - Discharge Data Discharge Date/Time-TO BE ENTERED AT DEPARTURE: 05/14/23 20:40 Medical Decision Making 37-year-old male presenting with swelling to his jaw with pain. Taking Medrol Dosepak which is prescribed by his dentist after being assessed for similar presentation Denies any chest pain or shortness of breath Reproducible tenderness over bilateral TMJs, right worse than left, pain with opening jaw, no evidence of intraoral pathology on assessment, uvula midline, lungs clear to auscultation, cardiac rate rhythm regular, distal pulses intact, no carotid bruit or pulsatile mass, TMs intact bilaterally without evidence of infection Patient did have a CT a month and a half ago, of his neck which does not show evidence of acute abnormality Patient may have TMJ, I will try a course of Flexeril and refer him back to his dentist in [place] I did consider more ominous pathologies, however given his presentation with reproducible pain, I think these are unlikely HPI General Date/Time Provider Initiated Documentation: 05/14/23 19:58. HPI Narrative: This 37-year-old male presents with facial pain to his jawline which has been going on for the past several months since having a tooth removed at a dentist and very. He states he was reevaluated and was placed on Medrol but the dentist was unsure as to what was causing his pain at that time. Patient states the pain has become worse. He denies any fever or chills. He denies any difficulty swallowing or chest discomfort. Denies any shortness of breath or diaphoresis. He states that the pain is worse when he puts pressure overlying the areas. He denies any associated neck pain. States this is the same pain he was evaluated for several months ago. Related Data Home Medications Medication Instructions Recorded Confirmed lorazepam 2 mg tablet 2 mg PO BID 09/25/13 05/14/23 lithium carbonate 300 mg 1,200 mg PO DAILY 05/07/22 05/14/23 tablet,extended release olanzapine 10 mg tablet (Zyprexa) 10 mg PO DAILY 05/07/22 05/14/23 cyclobenzaprine 10 mg tablet 10 mg PO TID PRN #20 tabs 05/14/23 methylprednisolone 4 mg tablet mg 05/14/23 Previous Rx's Medication Instructions Recorded cyclobenzaprine 10 mg tablet 10 mg PO TID PRN #20 tabs 05/14/23 Allergies Allergy/AdvReac Type Severity Reaction Status Date / Time banana [Banana] AdvReac unknown Unverified 02/09/23 15:17 General Stated Complaint: FacialProb SHAVON: 3 PFSH All Active Problems (Updated 05/14/23 @ 20:24 by JAZMIN Valles) Pain in lower jaw (Acute) Testicular pain (Acute) Pain (Acute) Surgical History (Updated 02/09/23 @ 15:18 by Anali Antonio RN) Hx of vasectomy Social History Smoking/Tobacco Use Status: Former Tobacco Use Smoking risk assessment performed?: Yes Alcohol Intake: current Alcohol Intake frequency: a few times a week Drug use: Daily Substance use type: marijuana Do you feel safe at home: Yes Do you feel safe in your relationship?: Yes Course Vital Signs Vital signs: Vital Signs Temperature 37.2 C 05/14/23 16:53 Pulse 96 H 05/14/23 16:53 Respiratory Rate 18 05/14/23 16:53 Blood Pressure 168/101 H 05/14/23 16:53 Pulse Oximetry 99 05/14/23 16:53 Temperature 37.2 C 05/14/23 16:53 Temperature Source Skin 05/14/23 16:53 Pulse 96 H 05/14/23 16:53 Respiratory Rate 18 05/14/23 16:53 Respiratory Effort Normal 05/14/23 16:57 Blood Pressure 168/101 H 05/14/23 16:53 Blood Pressure Position Sitting 05/14/23 16:53 Pulse Oximetry 99 05/14/23 16:53 Oxygen Delivery Method Room Air 05/14/23 16:53 Oxygen Flow Rate 0 05/14/23 16:53 Pain Level 6 05/14/23 16:53
== END 2023-05-14 20:40 | disposition home or self-care (01) ==
PROVIDERS: Emergency Provider Physician Assistant; PCP Internal Medicine
DX: R68.84 Jaw pain (principal)
CPT/HCPCS: 99283; 99284

== ENCOUNTER 2023-09-15 14:11 | Emergency (ER) | payer MEDICAID, SELFPAY ==
[2023-09-15 14:13] VITALS: BP 158/99; PULSE 105; RESP 18; TEMP 37.6; O2SAT 97
--- NOTE | 2023-09-15 14:15 | RT.EKG_ITS ---
APPROVED REPORT Exam: Resting ECG Reason for Exam: dizzy Patient Location: E HR:90 bpm ECG Measurements Heart Rate 90 AXIS LA 184 P 18 QRSd 110 QRS 45 QT 377 T -16 QTc 463 Conclusion Sinus rhythm...normal P axis, V-rate 60- 99 Inferior infarct, age indeterminate...Q>35mS, T neg, II III aVF Physician: no stemi, q wave and inverted t wave in III unchanged from prior ekg on 02/11/17
[2023-09-15 15:12] LABS: Abs Immature Grans 0.04 10^3/uL (0.0-0.06); Absolute Basophil Count 0.03 10^3/uL (0.0-0.2); Absolute Eosinophil Count 0.14 10^3/uL (0.0-0.7); Absolute Lymphocyte Count 2.29 10^3/uL (1.2-3.4); Absolute Monocyte Count 0.56 10^3/uL (0.1-0.8); Absolute Neutrophil Count 4.24 10^3/uL (1.2-6.7); Basophils % 0.4; Eosinophils % 1.9; HCT 45.3 % (40.0-50.0); HGB 15.4 g/dL (13.5-17.5); Immature Grans % 0.5; Lymphocytes % 31.4; MCH 28.7 pg (27.0-33.0); MCV 84 fL (80-95); MPV 8.5 fL (8.0-11.0); Monocytes % 7.7; Neutrophils % 58.1; Platelet Count 251 10^3/uL (130-400); RBC 5.37 10^6/uL (4.36-5.78); RDW 12.3 % (11.8-14.1); RDW-SD 37.3 fL
[2023-09-15 15:23] LABS: Lithium 0.5 mmol/l (0.6-1.2)
[2023-09-15 15:31] LABS: ALT 50 U/L (16-63); AST 20 U/L (15-37); Albumin 4.3 g/dL (3.4-5.0); Alkaline Phosphatase 78 U/L (46-116); Anion Gap 10.2 mmol/L (3-11); BUN 13 mg/dL (7-18); Bilirubin, Total 0.3 mg/dL (0.2-1.0); CO2 24.8 mmol/L (21.0-32.0); CREATININE 0.8 mg/dL (0.70-1.30); Calcium 9.4 mg/dL (8.5-10.1); Chloride 103 mmol/L (98-107); Glucose 114 mg/dL (74-106); Potassium 3.3 mmol/L (3.5-5.1); Sodium 138 mmol/L (136-145); Total Protein 8.2 g/dL (6.4-8.2); Troponin I < 50 ng/L (< or =60)
[2023-09-15] MEDS: Acetaminophen 500 MG TAB 1000 MG PO (15:34)
[2023-09-15] MEDS: Normal Saline 1,000 ML 1000 ML IV (15:34)
--- NOTE | 2023-09-15 15:55 | W.ED.GENAD ---
HPI General Date/Time Provider Initiated Documentation: 09/15/23 14:25. HPI Narrative: This 38-year-old male presents with report of right ear pain and lightheadedness. He states his symptoms started a week ago. He has a history of ear infections. He has pain with opening and closing his jaw. He denies any chest pain or shortness of breath. He states when he moves his head his symptoms are worsened. Related Data Home Medications Medication Instructions Recorded Confirmed lorazepam 2 mg tablet 2 mg PO BID 09/25/13 09/15/23 lithium carbonate 300 mg 1,200 mg PO DAILY 05/07/22 09/15/23 tablet,extended release olanzapine 10 mg tablet (Zyprexa) 10 mg PO DAILY 05/07/22 09/15/23 cyclobenzaprine 10 mg tablet 10 mg PO TID PRN #20 tabs 05/14/23 09/15/23 amoxicillin 875 mg-potassium 1 tab PO BID #20 tabs 09/15/23 clavulanate 125 mg tablet cyclobenzaprine 10 mg tablet 10 mg PO TID PRN #10 tabs 09/15/23 metformin 750 mg tablet,extended 750 mg PO ONCE 09/15/23 09/15/23 release 24 hr prednisone 20 mg tablet 40 mg (2 x 20 mg) PO ONCE #8 tabs 09/15/23 Previous Rx's Medication Instructions Recorded cyclobenzaprine 10 mg tablet 10 mg PO TID PRN #20 tabs 05/14/23 amoxicillin 875 mg-potassium 1 tab PO BID #20 tabs 09/15/23 clavulanate 125 mg tablet cyclobenzaprine 10 mg tablet 10 mg PO TID PRN #10 tabs 09/15/23 prednisone 20 mg tablet 40 mg (2 x 20 mg) PO ONCE #8 tabs 09/15/23 Allergies Allergy/AdvReac Type Severity Reaction Status Date / Time banana [Banana] AdvReac unknown Unverified 09/15/23 14:23 General Stated Complaint: GenMedical SHAVON: 3 Course Vital Signs Vital signs: Vital Signs Temperature 37.6 C 09/15/23 14:13 Pulse 105 H 09/15/23 14:13 Respiratory Rate 18 09/15/23 14:13 Blood Pressure 158/99 H 09/15/23 14:13 Pulse Oximetry 97 09/15/23 14:13 Temperature 37.6 C 09/15/23 14:13 Temperature Source Temporal Artery Scan 09/15/23 14:13 Pulse 105 H 09/15/23 14:13 Respiratory Rate 18 09/15/23 14:13 Respiratory Effort Normal, Non-Labored 09/15/23 14:24 Blood Pressure 158/99 H 09/15/23 14:13 Blood Pressure Position Sitting 09/15/23 14:13 Pulse Oximetry 97 09/15/23 14:13 Oxygen Delivery Method Room Air 09/15/23 14:13 Oxygen Flow Rate 0 09/15/23 14:13 Lab/Test Results Lab/Test Results: Laboratory Tests Range/Units 09/15/23 14:41 WBC (4.4-10.8) 10^3/uL 7.30 RBC (4.36-5.78) 10^6/uL 5.37 Hgb (13.5-17.5) g/dL 15.4 Hct (40.0-50.0) % 45.3 MCV (80-95) fL 84 MCH (27.0-33.0) pg 28.7 MCHC (32.0-36.0) % 34.0 RDW (11.8-14.1) % 12.3 Plt Count (130-400) 10^3/uL 251 MPV (8.0-11.0) fL 8.5 Immature Gran % 0.5 Neutrophils % 58.1 Lymphocytes % 31.4 Monocytes % 7.7 Eosinophils % 1.9 Basophils % 0.4 Nucleated RBC % (0.0-0.3) % 0.0 Absolute Neutrophils (1.2-6.7) 10^3/uL 4.24 Absolute Lymphocytes (1.2-3.4) 10^3/uL 2.29 Absolute Monocytes (0.1-0.8) 10^3/uL 0.56 Absolute Eosinophils (0.0-0.7) 10^3/uL 0.14 Absolute Basophils (0.0-0.2) 10^3/uL 0.03 Sodium (136-145) mmol/L 138 Potassium (3.5-5.1) mmol/L 3.3 L Chloride (98-107) mmol/L 103 Carbon Dioxide (21.0-32.0) mmol/L 24.8 Anion Gap (3-11) mmol/L 10.2 BUN (7-18) mg/dL 13 Creatinine (0.70-1.30) mg/dL 0.8 Est GFR (CKD-EPI 2020) (mL/min/1.73m2) 116.90 Glucose (74-106) mg/dL 114 H Calcium (8.5-10.1) mg/dL 9.4 Total Bilirubin (0.2-1.0) mg/dL 0.3 AST (15-37) U/L 20 ALT (16-63) U/L 50 Alkaline Phosphatase (46-116) U/L 78 Troponin I (< or =60) ng/L < 50 Total Protein (6.4-8.2) g/dL 8.2 Albumin (3.4-5.0) g/dL 4.3 [place] (0.6-1.2) mmol/l 0.5 L Medical Decision Making This 38-year-old male presents with report of ear pain and lightheadedness EKG was ordered secondary to lightheadedness did not show acute abnormality, labs are reassuring Patient actually has yellow drainage behind right TM, he does not have any erythema to TM but his right TM is bulging, I suspect he has an ear infection I will place patient on antibiotics, he has no mastoid tenderness, pupils equal round reactive to light and accommodation, extraocular muscles intact, GCS 15 Left TM has fluid, clear, bulging, mild erythema, no mastoid tenderness, cardiac rate rhythm regular, lungs clear to auscultation Ambulatory with steady gait, no acute distress, denies headache Neuro tenderness to left maxillary region, tenderness to right maxillary region, suspect patient has middle ear effusion with otitis media which is causing his symptoms, will treat with Augmentin, steroids, and he actually has an appointment scheduled with ENT this week Return precautions reviewed and patient expressed understanding Quality:SDOH Health Related Social Needs: No Data to Display PFSH All Active Problems (Updated 09/15/23 @ 15:52 by JAZMIN Valles) Otitis media (Acute) Referred otalgia of both ears (Acute) Testicular pain (Acute) Pain (Acute) Surgical History Hx of vasectomy Social History Smoking/Tobacco Use Status: Former Tobacco Use Smoking risk assessment performed?: Yes Alcohol Intake: current Alcohol Intake frequency: holidays/special occasions only Drug use: Daily Substance use type: marijuana Housing: house Do you feel safe at home: Yes Do you feel safe in your relationship?: Yes Discharge Plan Disposition Patient Disposition: Home Discharge Details Clinical Impression: Otitis media Primary Care Provider: Jermaine Wolfe ED Provider: Josey Lucas Home Meds and New Rx's Prescriptions: New amoxicillin-pot clavulanate 875-125 mg tablet 1 tab PO BID Qty: 20 0RF prednisone 20 mg tablet 40 mg PO ONCE Qty: 8 0RF cyclobenzaprine 10 mg tablet 10 mg PO TID PRNQty: 10 0RF Continued lithium carbonate 300 mg tablet extended release 1,200 mg PO DAILY olanzapine [Zyprexa] 10 mg tablet 10 mg PO DAILY lorazepam 2 MG tablet 2 mg PO BID Patient Comments: 12/01/17-0.5mg PO BID per pt. cyclobenzaprine 10 mg tablet 10 mg PO TID PRNQty: 20 0RF metformin 750 mg tablet extended release 24 hr 750 mg PO ONCE Discharge Instructions Instructions: Ear Infection (ED) Additional Instructions: Take amoxicillin as prescribed Take prednisone as prescribed I am writing for Flexeril, but I do not think this medication is going to be helpful in this particular instance Follow-up with ENT at your scheduled appointment as I suspect you have an ear infection You may use Flonase and the Zicam as needed Please return earlier should you have persistent or worsening symptoms Referrals: Jermaine Wolfe [Primary Care Provider] - Discharge Data Discharge Date/Time-TO BE ENTERED AT DEPARTURE: 09/15/23 16:13
[2023-09-15 16:03] VITALS: RESP 18
[2023-09-15] MEDS: Amox. 875/Clav. 125, 2 TABS/BTL 1 TAB PO (16:12)
[2023-09-15] MEDS: predniSONE 20 MG TAB 40 MG PO (16:12)
== END 2023-09-15 16:13 | disposition home or self-care (01) ==
PROVIDERS: Emergency Provider Physician Assistant; PCP Internal Medicine
DX: R42 Dizziness and giddiness (principal); H66.92 Otitis media, unspecified, left ear; Z87.891 Personal history of nicotine dependence; Z79.899 Other long term (current) drug therapy
CPT/HCPCS: 80053; 93005; 96360; 99284; 80178; 84484; 85025; 93010; 99283; J7512

== ENCOUNTER 2023-09-18 12:02 | Emergency (ER) | payer MEDICAID, SELFPAY ==
[2023-09-18] VITALS (8 sets, daily range): BP systolic 139–167; BP diastolic 81–96; PULSE 85–108; RESP 11–18; TEMP 37.3; O2SAT 95–99
--- NOTE | 2023-09-18 12:00 | RT.EKG_ITS ---
APPROVED REPORT Exam: Resting ECG Reason for Exam: chest pain Patient Location: E HR:95 bpm ECG Measurements Heart Rate 95 AXIS DE 168 P 47 QRSd 117 QRS 38 QT 356 T -7 QTc 448 Conclusion Sinus rhythm. normal axis no acute ST segment changes
--- NOTE | 2023-09-18 12:15 | DI.RAD_ITS ---
Exam(s) XR CHEST 2V PA LATERAL EXAM: XR CHEST 2V PA LATERAL CLINICAL HISTORY: chest pain. TECHNIQUE: 2D digital imaging was performed. COMPARISON: No exams were available for comparison FINDINGS: 2 views: Heart size is normal. The mediastinum is not widened. Lungs are clear. No infiltrates nor pleural effusions. IMPRESSION: No acute pulmonary findings. DATA REPOSITORY: RADIATION DOSE DELIVERED:
[2023-09-18] MEDS: ALPRAZolam 0.5 MG TAB 1 MG PO (12:30)
[2023-09-18] MEDS: Acetaminophen 500 MG TAB 1000 MG PO (12:30)
[2023-09-18] MEDS: Aspirin 325 MG TAB PO (12:30)
[2023-09-18 12:38] LABS: Abs Immature Grans 0.05 10^3/uL (0.0-0.06); Absolute Basophil Count 0.03 10^3/uL (0.0-0.2); Absolute Eosinophil Count 0.01 10^3/uL (0.0-0.7); Absolute Monocyte Count 0.41 10^3/uL (0.1-0.8); Absolute Neutrophil Count 8.02 10^3/uL (1.2-6.7); Basophils % 0.3; Eosinophils % 0.1; HCT 46.6 % (40.0-50.0); HGB 15.7 g/dL (13.5-17.5); Immature Grans % 0.5; Lymphocytes % 14.1; MCHC 33.7 % (32.0-36.0); MCV 83 fL (80-95); MPV 8.2 fL (8.0-11.0); Monocytes % 4.1; Neutrophils % 80.9; Platelet Count 282 10^3/uL (130-400); RBC 5.61 10^6/uL (4.36-5.78); RDW 12.2 % (11.8-14.1); RDW-SD 37.4 fL; WBC 9.92 10^3/uL (4.4-10.8)
[2023-09-18 12:53] LABS: ALT 59 U/L (16-63); AST 17 U/L (15-37); Albumin 4.8 g/dL (3.4-5.0); Alkaline Phosphatase 69 U/L (46-116); Anion Gap 12.1 mmol/L (3-11); BUN 17 mg/dL (7-18); Bilirubin, Total 0.4 mg/dL (0.2-1.0); CO2 24.9 mmol/L (21.0-32.0); CREATININE 0.9 mg/dL (0.70-1.30); Calcium 10.1 mg/dL (8.5-10.1); Chloride 102 mmol/L (98-107); Estimated GFR 112.81 (mL/min/1.73m2); Glucose 119 mg/dL (74-106); Magnesium 2.2 mg/dL (1.8-2.4); Potassium 3.5 mmol/L (3.5-5.1); Sodium 139 mmol/L (136-145); Total Protein 8.8 g/dL (6.4-8.2); Troponin I < 50 ng/L (< or =60)
--- NOTE | 2023-09-18 12:53 | DI.VRAD_ITS ---
PROCEDURE INFORMATION: Exam: XR Chest Exam date and time: 09/18/2023 12:40 PM Age: 38 years old Clinical indication: Other: Chest pain TECHNIQUE: Imaging protocol: Radiologic exam of the chest. Views: 2 views. COMPARISON: CT NECK W 01/26/2023 9:50 PM FINDINGS: Lungs: Unremarkable. No consolidation. Pleural spaces: Unremarkable. No pleural effusion. No pneumothorax. Heart/Mediastinum: Unremarkable. No cardiomegaly. Bones/joints: Unremarkable. IMPRESSION: No acute findings. Dictated and Authenticated by: Kyaw Castro MD. Ordering:[facility] Aleshia Hargrove MD
--- NOTE | 2023-09-18 13:43 | ED.GENADUL_ITS ---
HPI General Date/Time Provider Initiated Documentation: 09/18/23 12:03 . Limitations to Documentation: no limitations . Information obtained by: patient . HPI Narrative: 38-year-old gentleman with past medical history of diabetes, psychiatric disorder presents for evaluation of chest pain. He reports left-sided chest pain, not associated with shortness of breath. Has been ongoing for the last 3 days. It feels better when he is able to rest and relax. It is not exacerbated with exertion, but feels worse with stress. I have 4 kids. He reports that he has pain around his thumb and some abnormal feeling in his first 2 fingers. He denies any trauma. He reports that the pain is worse with heavy lifting and that a few days ago before the symptoms started he did a lot of ice fishing and drilling holes in the ice. He does not smoke. He is compliant with his medications. Related Data Home Medications Medication Instructions Recorded Confirmed lorazepam 2 mg tablet 2 mg PO BID 09/25/13 09/18/23 lithium carbonate 300 mg 1,200 mg PO DAILY 05/07/22 09/18/23 tablet,extended release olanzapine 10 mg tablet (Zyprexa) 10 mg PO DAILY 05/07/22 09/18/23 cyclobenzaprine 10 mg tablet 10 mg PO TID PRN #20 tabs 05/14/23 09/18/23 amoxicillin 875 mg-potassium 1 tab PO BID #20 tabs 09/15/23 09/18/23 clavulanate 125 mg tablet cyclobenzaprine 10 mg tablet 10 mg PO TID PRN #10 tabs 09/15/23 09/18/23 metformin 750 mg tablet,extended 750 mg PO ONCE 09/15/23 09/18/23 release 24 hr prednisone 20 mg tablet 40 mg (2 x 20 mg) PO ONCE #8 tabs 09/15/23 09/18/23 Previous Rx's Medication Instructions Recorded cyclobenzaprine 10 mg tablet 10 mg PO TID PRN #20 tabs 05/14/23 amoxicillin 875 mg-potassium 1 tab PO BID #20 tabs 09/15/23 clavulanate 125 mg tablet cyclobenzaprine 10 mg tablet 10 mg PO TID PRN #10 tabs 09/15/23 prednisone 20 mg tablet 40 mg (2 x 20 mg) PO ONCE #8 tabs 09/15/23 Allergies Allergy/AdvReac Type Severity Reaction Status Date / Time banana [Banana] AdvReac unknown Unverified 09/18/23 12:11 General Stated Complaint: Chest Pain SHAVON: 3 Exam Narrative Exam Narrative: Review of Systems: All systems reviewed & are unremarkable except as noted in HPI and below Well-developed, no acute distress NCAT PERRL, normal conjunctiva No midline C-spine tenderness, step-off or deformity RRR Unlabored respiratory effort, clear breath sounds bilaterally Nondistended abdomen Extremities w/o deformity, no cyanosis, no edema No rashes or lesions. no focal neurologic deficits good strength bilaterally Anxious and tearful Course Vital Signs Vital signs: Vital Signs Temperature 37.3 C 09/18/23 12:06 Pulse 103 H 09/18/23 12:06 Respiratory Rate 18 09/18/23 12:06 Blood Pressure 167/96 H 09/18/23 12:06 Pulse Oximetry 96 09/18/23 12:06 Temperature 37.3 C 09/18/23 12:06 Temperature Source Temporal Artery Scan 09/18/23 12:06 Pulse 94 H 09/18/23 13:22 Pulse 92 H 09/18/23 12:31 Respiratory Rate 18 09/18/23 13:22 Respiratory Effort Normal, Non-Labored 09/18/23 12:32 Respiratory Depth Normal 09/18/23 12:32 Respiratory Pattern Normal 09/18/23 12:32 Blood Pressure 139/92 H 09/18/23 13:22 Blood Pressure Mean 103 09/18/23 12:30 Blood Pressure Position Sitting 09/18/23 12:06 Pulse Oximetry 95 09/18/23 13:22 Oxygen Delivery Method Room Air 09/18/23 12:06 Oxygen Flow Rate 0 09/18/23 12:06 Pain Level 5 09/18/23 12:32 Lab/Test Results Lab/Test Results: Laboratory Tests Range/Units 09/18/23 12:30 WBC (4.4-10.8) 10^3/uL 9.92 RBC (4.36-5.78) 10^6/uL 5.61 Hgb (13.5-17.5) g/dL 15.7 Hct (40.0-50.0) % 46.6 MCV (80-95) fL 83 MCH (27.0-33.0) pg 28.0 MCHC (32.0-36.0) % 33.7 RDW (11.8-14.1) % 12.2 Plt Count (130-400) 10^3/uL 282 MPV (8.0-11.0) fL 8.2 Immature Gran % 0.5 Neutrophils % 80.9 Lymphocytes % 14.1 Monocytes % 4.1 Eosinophils % 0.1 Basophils % 0.3 Nucleated RBC % (0.0-0.3) % 0.0 Absolute Neutrophils (1.2-6.7) 10^3/uL 8.02 H Absolute Lymphocytes (1.2-3.4) 10^3/uL 1.40 Absolute Monocytes (0.1-0.8) 10^3/uL 0.41 Absolute Eosinophils (0.0-0.7) 10^3/uL 0.01 Absolute Basophils (0.0-0.2) 10^3/uL 0.03 Sodium (136-145) mmol/L 139 Potassium (3.5-5.1) mmol/L 3.5 Chloride (98-107) mmol/L 102 Carbon Dioxide (21.0-32.0) mmol/L 24.9 Anion Gap (3-11) mmol/L 12.1 H BUN (7-18) mg/dL 17 Creatinine (0.70-1.30) mg/dL 0.9 Est GFR (CKD-EPI 2020) (mL/min/1.73m2) 112.81 Glucose (74-106) mg/dL 119 H Calcium (8.5-10.1) mg/dL 10.1 Magnesium (1.8-2.4) mg/dL 2.2 Total Bilirubin (0.2-1.0) mg/dL 0.4 AST (15-37) U/L 17 ALT (16-63) U/L 59 Alkaline Phosphatase (46-116) U/L 69 Troponin I (< or =60) ng/L < 50 Total Protein (6.4-8.2) g/dL 8.8 H Albumin (3.4-5.0) g/dL 4.8 Medical Decision Making Emergent evaluation of chest pain. Symptoms have been ongoing for the last several days. His risk factors include diabetes for which she takes metformin. His EKG does not show an acute ischemic change. I will low suspicion for ACS for this patient. Also consider musculoskeletal pain, cervical radiculopathy given his hand Involvement. Lab work reviewed, CBC unremarkable. CMP without acute electrolyte derangement. His troponin level is negative. Chest x-ray obtained and reviewed, no acute cardiopulmonary abnormalities. At this time given the duration of the symptoms his risk factors and presentation, I do not feel that the patient requires further emergent workup. Advised NSAIDs scheduled for the next few days and for close follow-up with PCP. Medical Records Medical records reviewed: Yes I reviewed the patient's medical records. Lab Data Lab results reviewed: Yes I reviewed the patient's lab results. ECG Data Attestation: I personally reviewed and interpreted this ECG (s) as follows: Interpretation: Sinus 95 normal axis no acute ischemic changes Quality:SDOH Health Related Social Needs: No Data to Display PFSH All Active Problems Chest pain (Acute) Otitis media (Acute) Referred otalgia of both ears (Acute) Testicular pain (Acute) Pain (Acute) Surgical History Hx of vasectomy Social History Smoking/Tobacco Use Status: Former Tobacco Use Smoking risk assessment performed?: Yes Alcohol Intake: current Alcohol Intake frequency: holidays/special occasions only Drug use: Daily Substance use type: marijuana Housing: house Do you feel safe at home: Yes Do you feel safe in your relationship?: Yes PAWSS Have you Been Recently Intoxicated or Drunk Within the Last 30 days?: No Have you Ever Experienced Previous Episodes of Alcohol Withdrawal?: No Have you ever Experienced Withdrawal Seizures?: No Have you ever Experienced Delirium Tremens(DT)s?: No Have you ever undergone Alcohol Rehabilitation Treatment (i.e, inpt ot outpatient treatment programs)?: No Have you ever Experienced Blackouts?: No Have you ever Combined Alcohol with other Downers within the last 90 days?: No Have you ever Combined Alcohol with any other Substance of Abuse during the last 90 days?: No Positive Blood Alcohol level on Presentation? [PCS.BAL]: No Evidence of Increased Autonomic Activity (i.e. HR>120, tremor, sweating, agitation, nausea)?: No Result: 0 Discharge Plan Disposition Patient Disposition: Home Condition: Stable Discharge Details Clinical Impression: Chest pain Primary Care Provider: Jermaine Wolfe ED Provider: Deshaun Monk Home Meds and New Rx's Prescriptions: No Action lithium carbonate 300 mg tablet extended release 1,200 mg PO DAILY olanzapine [Zyprexa] 10 mg tablet 10 mg PO DAILY lorazepam 2 MG tablet 2 mg PO BID Patient Comments: 12/01/17-0.5mg PO BID per pt. cyclobenzaprine 10 mg tablet 10 mg PO TID PRNQty: 20 0RF metformin 750 mg tablet extended release 24 hr 750 mg PO ONCE amoxicillin-pot clavulanate 875-125 mg tablet 1 tab PO BID Qty: 20 0RF prednisone 20 mg tablet 40 mg PO ONCE Qty: 8 0RF cyclobenzaprine 10 mg tablet 10 mg PO TID PRNQty: 10 0RF Discharge Instructions Instructions: Chest Pain (ED) Additional Instructions: ED work up today looks good, try some motrin 600mg every 6 hours to see if there's improvement. if symptoms are worsening, please return to ED or follow up with your PCP.
== END 2023-09-18 13:26 | disposition home or self-care (01) ==
PROVIDERS: Emergency Provider Emergency Medicine; PCP Internal Medicine
DX: R07.9 Chest pain, unspecified (principal); E11.9 Type 2 diabetes mellitus without complications; Z79.84 Long term (current) use of oral hypoglycemic drugs; Z87.891 Personal history of nicotine dependence
CPT/HCPCS: 36415; 80053; 93005; 99283; 71046; 83735; 84484; 85025; 93010

== ENCOUNTER 2023-11-25 01:40 | Emergency (ER) | payer MEDICAID, SELFPAY ==
[2023-11-25 01:45] VITALS: PULSE 105; RESP 16; TEMP 36.2; O2SAT 98
--- NOTE | 2023-11-25 02:00 | W.ED.GENAD ---
Discharge Plan Disposition Patient Disposition: Home Condition: Good Discharge Details Chief Complaint: Sorethroat Clinical Impression: Pharyngitis Primary Care Provider: Jermaine Wolfe ED Provider: Evelio Caldera Home Meds and New Rx's Prescriptions: No Action lithium carbonate 300 mg tablet extended release 1,200 mg PO DAILY olanzapine [Zyprexa] 10 mg tablet 10 mg PO DAILY lorazepam 2 MG tablet 2 mg PO BID Patient Comments: 12/01/17-0.5mg PO BID per pt. cyclobenzaprine 10 mg tablet 10 mg PO TID PRNQty: 20 0RF metformin 750 mg tablet extended release 24 hr 750 mg PO ONCE cyclobenzaprine 10 mg tablet 10 mg PO TID PRNQty: 10 0RF Discharge Instructions Instructions: Pharyngitis (ED) Additional Instructions: At this time your strep test is negative. Your COVID flu and RSV has returned negative. Do not see any signs of fungal infection in the back of your throat, or other significant abnormality at this time thankfully. As we discussed together I suspect there is a component of a viral irritation causing the inflammation and discomfort that you are feeling. However if symptoms continue to persist then you may need further evaluation by the ENT specialist whose phone number we have provided below. We have sent a referral to their office. In the meantime please continue to take 1000 mg of Tylenol every 6 hours for pain. For the next 24 hours you can also take a maximum dose of 800 mg of Motrin every 6 hours. Do not continue to take this longer than that secondary to your lithium use. If you notice any worsening of your symptoms, or any new symptoms such as vomiting, diarrhea, fever, chills, shortness of breath, chest pain, numbness, weakness, or fainting , please return immediately to the emergency department for reevaluation. Please follow up with your primary care provider as soon as possible for reassessment and reevaluation. As always, it was a pleasure participating in your medical care today. Referrals: Jermaine Wolfe [Primary Care Provider] - Darnell Henson MD [ [facility] STAFF PHYSICIAN] - [facility] General Date/Time Provider Initiated Documentation: 11/25/23 01:43. [facility] Narrative: This is a pleasant 38-year-old male with a past medical history of bipolar, previous alcohol use, hypertension, diabetes, recent bilateral tympanostomy tubes 2 months ago, who presents today for 1 week of sore throat. Patient states that it was initially mild in onset but has worsened over the last few days. He went to [facility] where he states that no testing was done. He then went to an urgent care where he said that a strep swab was done but this was negative, and then presents again tonight for further evaluation. He has taken NSAIDs which minimally improves his pain. Most recent NSAID was Tylenol 6 hours ago. He does admit to pain with swallowing but no difficulty with swallowing or drinking. He denies any fever or chills. No headache. No other complaints at this time. Related Data Home Medications Medication Instructions Recorded Confirmed lorazepam 2 mg tablet 2 mg PO BID 09/25/13 11/25/23 lithium carbonate 300 mg 1,200 mg PO DAILY 05/07/22 11/25/23 tablet,extended release olanzapine 10 mg tablet (Zyprexa) 10 mg PO DAILY 05/07/22 11/25/23 cyclobenzaprine 10 mg tablet 10 mg PO TID PRN #20 tabs 05/14/23 11/25/23 cyclobenzaprine 10 mg tablet 10 mg PO TID PRN #10 tabs 09/15/23 11/25/23 metformin 750 mg tablet,extended 750 mg PO ONCE 09/15/23 11/25/23 release 24 hr Previous Rx's Medication Instructions Recorded cyclobenzaprine 10 mg tablet 10 mg PO TID PRN #20 tabs 05/14/23 cyclobenzaprine 10 mg tablet 10 mg PO TID PRN #10 tabs 09/15/23 Allergies Allergy/AdvReac Type Severity Reaction Status Date / Time banana [Banana] AdvReac unknown Unverified 11/25/23 01:51 General Stated Complaint: Sorethroat SHAVON: 4 Review of Systems All systems reviewed & are unremarkable except as noted in HPI and below Exam Narrative Exam Narrative: 1.Const: Well-nourished, Well-developed, appearing stated age 2.Eyes: PERRL, no conjunctival injection, and symmetrical lids. 3.ENT: Atraumatic external nose and ears. Moist MM. Neck: Symmetric, trachea midline, No thyromegaly. Bilateral tympanostomy tubes are in place. No active drainage. No erythema in the posterior oropharynx. No tonsillar enlargement. Uvula is midline and normal size. No large mass of the neck. No stridor or hot potato voice. 4.CVS: +S1/S2, No murmurs or gallops. Peripheral pulses 2+ and equal in all extremities. Brisk capillary refill in all extremities. 5.RESP: Unlabored respiratory effort. Clear to auscultation bilaterally. No wheezes rales or rhonchi 6.GI: Soft, Nontender/Nondistended, No hepatosplenomegaly. No guarding or rebound. 7.MSK: Normocephalic/Atraumatic, Extremities w/o deformity or ttp No cyanosis or clubbing, Normal movement of all extremities 8.Skin: Warm, Dry. No rashes or lesions. 9.Neuro: pricing lead II-XII grossly intact. Sensation grossly intact, no focal neurologic deficits. 10.Psych: (AAO) x3. Appropriate mood and affect Course Vital Signs Vital signs: Vital Signs Temperature 36.2 C L 11/25/23 01:45 Pulse 105 H 11/25/23 01:45 Respiratory Rate 16 11/25/23 01:45 Pulse Oximetry 98 11/25/23 01:45 Temperature 36.2 C L 11/25/23 01:45 Temperature Source Oral 11/25/23 01:45 Pulse 105 H 11/25/23 01:45 Respiratory Rate 16 11/25/23 01:45 Respiratory Effort Normal 11/25/23 01:50 Pulse Oximetry 98 11/25/23 01:45 Oxygen Delivery Method Room Air 11/25/23 01:45 Oxygen Flow Rate 0 11/25/23 01:45 Pain Level 6 11/25/23 01:45 Medical Decision Making This is a pleasant 38-year-old male with a past medical history of bipolar, previous alcohol use, hypertension, diabetes, recent bilateral tympanostomy tubes 2 months ago, who presents today for 1 week of sore throat. Patient states that it was initially mild in onset but has worsened over the last few days. He went to [facility] where he states that no testing was done. He then went to an urgent care where he said that a strep swab was done but this was negative, and then presents again tonight for further evaluation. He has taken NSAIDs which minimally improves his pain. Most recent NSAID was Tylenol 6 hours ago. He does admit to pain with swallowing but no difficulty with swallowing or drinking. He denies any fever or chills. No headache. No other complaints at this time. Exam demonstrates well-appearing male, posterior oropharynx demonstrates no redness or erythema or edema. No signs of strep throat, tonsillitis, or uvulitis. No ulcers to suggest herpangina. No severe dental infection, no swelling in the neck to suggest Ludewig's angina. No hoarse or hot potato voice. No trismus. No other abnormalities. Uncertain as to what is causing the patient's symptoms currently. Differential is highest for viral etiology causing mild viral pharyngitis versus postnasal drip causing the irritation. We will test for strep and COVID/flu/RSV out of an abundance of precaution. No indication for emergent imaging at this time, no signs of airway compromise or angioedema. Will give Toradol and Tylenol, monitor closely and reassess. Will give viscous lidocaine as well. 2:57 AM On reassessment patient is feeling much better, symptoms have resolved. COVID flu and RSV and strep testing are all negative. Suspect mild viral pharyngitis continuing to cause his symptoms, however the duration is slightly atypical. No evidence of fungal infection. No other abnormality. After shared decision-making discussion, patient has deferred CT imaging at this time. No indication for emergent imaging currently. Patient stable for discharge. Will place referral for ENT on outpatient basis. Recommend continued Tylenol at home, with a short 24-hour course of ibuprofen. Recommend caution secondary to his lithium use. Discussed red flags for which to return. I have extensively reviewed the treatment plan and discharge instructions with the patient. I have addressed all patient concerns at this time. The patient was made aware of what symptoms to monitor for that would warrant a return to the emergency department. Discussed the plan with the patient, they demonstrate verbal understanding and agreement with our assessment and plan at this time. The documentation in this chart was dictated using [employer] dictation software. Please excuse any dictation errors. Quality:SDOH Health Related Social Needs: No Data to Display PFSH All Active Problems (Updated 11/25/23 @ 02:56 by Evelio Caldera DO) Pharyngitis (Acute) Referred otalgia of both ears (Acute) Testicular pain (Acute) Pain (Acute) Surgical History Hx of vasectomy Social History Smoking/Tobacco Use Status: Former Tobacco Use Smoking risk assessment performed?: Yes Alcohol Intake: current Alcohol Intake frequency: holidays/special occasions only Drug use: Daily Substance use type: marijuana Housing: house Do you feel safe at home: Yes Do you feel safe in your relationship?: Yes
[2023-11-25] MEDS: Lidocaine 2% Viscous 1 ML Solution 10 ML PO (02:10)
[2023-11-25] MEDS: Acetaminophen 500 MG TAB 1000 MG PO (02:11)
[2023-11-25] MEDS: Ketorolac 30 MG/ML VIAL IM (02:11)
[2023-11-25 02:45] LABS: COVID-19 PCR Negative (Negative); Influenza A PCR Negative (Negative); Influenza B PCR Negative (Negative); RSV PCR Negative (Negative)
[2023-11-25 02:47] LABS: Source Nasopharynx
[2023-11-25 03:00] VITALS: BP 180/70; PULSE 80; RESP 20; TEMP 36.6; O2SAT 98
--- NOTE | 2023-11-25 03:01 | NUR.NOTE ---
Referral to [facility] ENT to f/u in 2-3 weeks for recurrent/persistent pharyngitis.Nursing Note:
== END 2023-11-25 03:00 | disposition home or self-care (01) ==
PROVIDERS: Emergency Provider Student in an Organized Health Care Education/Training Program; PCP Internal Medicine
DX: J02.9 Acute pharyngitis, unspecified (principal); I10 Essential (primary) hypertension; E11.9 Type 2 diabetes mellitus without complications; Z11.52 Encounter for screening for COVID-19; Z79.84 Long term (current) use of oral hypoglycemic drugs; Z87.891 Personal history of nicotine dependence
CPT/HCPCS: 87637; 96372; 99283; J1885

== ENCOUNTER 2023-12-01 14:47 | Outpatient (REF) | payer MEDICAID, SELFPAY ==
[2023-12-01 20:23] LABS: Calculated LDL 114 mg/dL (<100); Cholesterol 179 mg/dL (<200); HDL Cholesterol 37 mg/dL (40-60); TSH (W/Ref FT4) 1.75 uIU/mL (0.36-3.74); Triglyceride 144 mg/dL (<150)
== END 2023-12-01 14:48 | disposition home or self-care (01) ==
LOC: NCHCN 14:47
PROVIDERS: PCP Internal Medicine; Visit Provider Physician Assistant
DX: I10 Essential (primary) hypertension (principal)
CPT/HCPCS: 80061; 84443

== ENCOUNTER 2024-08-03 15:33 | Outpatient (REF) | payer MEDICAID, SELFPAY ==
[2024-08-03 19:19] LABS: Abs Immature Grans 0.04 10^3/uL (0.0-0.06); Absolute Basophil Count 0.04 10^3/uL (0.0-0.2); Absolute Eosinophil Count 0.09 10^3/uL (0.0-0.7); Absolute Lymphocyte Count 2.25 10^3/uL (1.2-3.4); Absolute Monocyte Count 0.57 10^3/uL (0.1-0.8); Absolute Neutrophil Count 4.07 10^3/uL (1.2-6.7); Basophils % 0.6 %; Eosinophils % 1.3 %; HCT 44.8 % (40.0-50.0); HGB 15.1 g/dL (13.5-17.5); Immature Grans % 0.6 %; Lymphocytes % 31.9 %; MCH 28.9 pg (27.0-33.0); MCHC 33.7 % (32.0-36.0); MCV 86 fL (80-95); MPV 8.7 fL (8.0-11.0); Monocytes % 8.1 %; Neutrophils % 57.5 %; Platelet Count 266 10^3/uL (130-400); RBC 5.22 10^6/uL (4.36-5.78); RDW 12.4 % (11.8-14.1); RDW-SD 38.9 fL; WBC 7.06 10^3/uL (4.4-10.8)
[2024-08-03 19:36] LABS: Lithium < 0.2 mmol/L (0.6-1.2)
[2024-08-03 19:58] LABS: ALT 39 U/L (16-63); AST 16 U/L (15-37); Albumin 4.3 g/dL (3.4-5.0); Alkaline Phosphatase 67 U/L (46-116); Anion Gap 12.2 mmol/L (3-11); BUN 16 mg/dL (7-18); Bilirubin, Total 0.36 mg/dL (0.2-1.0); CO2 24.8 mmol/L (21.0-32.0); CREATININE 0.9 mg/dL (0.70-1.30); Calcium 9.4 mg/dL (8.5-10.1); Chloride 104 mmol/L (98-107); Estimated GFR 112.11 (mL/min/1.73m2); Glucose 99 mg/dL (74-106); Potassium 4.1 mmol/L (3.5-5.1); Sodium 141 mmol/L (136-145); TSH (W/Ref FT4) 1.29 uIU/mL (0.36-3.74); Total Protein 7.7 g/dL (6.4-8.2); Vitamin B12 685 pg/mL (193-986); Vitamin D 25 Total 25.9 ng/mL (30-100)
[2024-08-03 19:59] LABS: Folate > 20.0 ng/mL (8.6-20.0)
== END 2024-08-03 15:34 | disposition home or self-care (01) ==
LOC: NCHCN 15:33
PROVIDERS: PCP Internal Medicine; Visit Provider Physician Assistant
DX: R10.11 Right upper quadrant pain (principal); R53.83 Other fatigue; F31.2 Bipolar disorder, current episode manic severe with psychotic features; R73.03 Prediabetes
CPT/HCPCS: 80053; 82306; 80178; 82607; 82746; 84443; 85025

== ENCOUNTER 2024-08-11 11:36 | Outpatient (REF) | payer MEDICAID, SELFPAY ==
[2024-08-11 19:24] LABS: Hemoglobin A1C 5.5 % (<5.7)
== END 2024-08-11 11:37 | disposition home or self-care (01) ==
LOC: NCHCN 11:36
PROVIDERS: PCP Internal Medicine; Visit Provider Physician Assistant
DX: R73.03 Prediabetes (principal)
CPT/HCPCS: 83036

== ENCOUNTER 2024-10-25 19:21 | Emergency (ER) | payer MEDICAID, SELFPAY ==
[2024-10-25 19:24] VITALS: BP 162/99; PULSE 119; RESP 20; TEMP 36.7; O2SAT 98
--- NOTE | 2024-10-25 19:52 | ED.GENADUL_ITS ---
Discharge Plan Disposition Patient Disposition: Home Discharge Details Clinical Impression: Ear pain, right Primary Care Provider: Jermaine Wolfe ED Provider: Aramis Rodrigues Home Meds and New Rx's Prescriptions: Continued lithium carbonate 300 mg tablet extended release 1,200 mg PO DAILY olanzapine [Zyprexa] 10 mg tablet 5 mg PO DAILY lorazepam 2 MG tablet 2 mg PO BID Patient Comments: 12/01/17-0.5mg PO BID per pt. metformin 750 mg tablet extended release 24 hr 750 mg PO ONCE Discontinued lisinopril 10 mg tablet 10 mg PO DAILY Discharge Instructions Additional Instructions: It appears your tube is in your ear canal. Ear canal is inflamed. Please 4 drops in the ear twice a day until you follow-up with ENT. You should receive a call with a follow-up appointment for ENT. If you feel more ill or have new symptoms such as high fevers return to the emergency department for reevaluation HPI General Mode of arrival: ambulatory . Date/Time Provider Initiated Documentation: 10/25/24 19:24 . Limitations to Documentation: no limitations . Information obtained by: patient . History of Present Illness 39 year old M presents to the emergency department with the chief complaint of right ear discomfort, Quality is described as aching, Patient reports no radiation. Patient started experiencing this week(s) (1) and it has been constant. No relieving factors improve symptom(s), No exacerbating factors reported . Patient notes no other symptoms.. Patient did receive the following treatments prior to arrival, none Related Data Home Medications ?Medication ?Instructions ?Recorded ?Confirmed lorazepam 2 mg tablet 2 mg PO BID 09/25/13 10/25/24 lithium carbonate 300 mg 1,200 mg PO DAILY 05/07/22 10/25/24 tablet,extended release metformin 750 mg tablet,extended 750 mg PO ONCE 09/15/23 10/25/24 release 24 hr olanzapine 10 mg tablet (Zyprexa) 5 mg PO DAILY 11/30/23 10/25/24 Allergies Allergy/AdvReac Type Severity Reaction Status Date / Time banana (Banana) AdvReac unknown Unverified 10/25/24 19:26 General Stated Complaint: EarProblem SHAVON: 4 Review of Systems All systems reviewed & are unremarkable except as noted in HPI and below Constitutional Constitutional: Denies chills, Denies fever(s) and Denies weakness ENT Ears, Nose, Mouth, and Throat: Reports otalgia Cardiovascular Cardiovascular: Denies chest pain and Denies dyspnea Respiratory Respiratory: Denies cough and Denies dyspnea Gastrointestinal Gastrointestinal: Denies abdominal pain, Denies nausea and Denies vomiting Integumentary/Breasts Skin/Breast: Denies rash Neurologic Neurologic: Denies weakness Allergic/Immunologic Allergic/Immunologic: Denies urticaria Exam Const General: no acute distress Orientation: alert HENMT Head: normal to inspection Ears: external ears normal and TM's normal bilaterally General nose exam: external nose normal Mouth: moist mucous membranes Eyes General: appearance normal, both eyes and all related structures Neck Neck: normal visual inspection Resp Effort & Inspection: normal respiratory effort and able to speak in complete sentences Cardio Rate: regular rate Skin General skin exam: no rashes or lesions noted Neuro General: patient alert and patient oriented x3 Extrem General: normal to inspection Psych Mental Status: mental status grossly normal Course Vital Signs Vital signs: Vital Signs Temperature 36.7 C 10/25/24 19:24 Pulse 119 H 10/25/24 19:24 Respiratory Rate 20 10/25/24 19:24 Blood Pressure 162/99 H 10/25/24 19:24 Pulse Oximetry 98 10/25/24 19:24 Temperature 36.7 C 10/25/24 19:24 Pulse 119 H 10/25/24 19:24 Respiratory Rate 20 10/25/24 19:24 Blood Pressure 162/99 H 10/25/24 19:24 Blood Pressure Position Sitting 10/25/24 19:24 Pulse Oximetry 98 10/25/24 19:24 Pain Level 7 10/25/24 19:36 Medical Decision Making 39-year-old male who states that he had bilateral ear tubes placed year ago for ear infections and had the left ear tube removed 3 weeks ago comes in with 1 week of right ear pain. Denies any high fevers or drainage. He is stable on arrival. His left TM and external auditory canal are normal in appearance. She has a foreign body in the right ear canal appears to be his ear tube. The tympanic membrane itself is normal in appearance. I attempted to remove but this was too painful for him, will place lidocaine and reassess Despite numbing the ear and several times trying to remove it the patient was not able to tolerate me removing the tube. He states that the ENT that she is up in [place] is only there once or twice a month until November. I will try and see if he can see Dr. Henson and place him on a follow-up list to try and be seen a soon as possible. Ear canal is swollen so I will treat with eardrops for possible otitis externa. Return precautions given Differential Diagnosis Differential Diagnosis: Foreign body, otitis externa Quality:SDOH Health Related Social Needs: No Data to Display PFSH All Active Problems (Updated 10/25/24 @ 20:49 by Aramis Rodrigues MD) Ear pain, right (Acute) Referred otalgia of both ears (Acute) Testicular pain (Acute) Pain (Acute) Surgical History Hx of vasectomy Social History Smoking/Tobacco Use Status: Former Tobacco Use Smoking risk assessment performed?: Yes Alcohol Intake: current Alcohol Intake frequency: holidays/special occasions only Drug use: Daily Substance use type: marijuana Housing: house Do you feel safe at home: Yes Do you feel safe in your relationship?: Yes
[2024-10-25] MEDS: Ketorolac 15 MG/ML VIAL IM (20:25)
[2024-10-25] MEDS: Lidocaine 2% Multi-Dose 20 ML VIAL IJ (20:25)
[2024-10-25] MEDS: Ciprofloxacin/Dexameth. 7.5 ML BTL AD (20:56)
[2024-10-25 20:57] VITALS: BP 158/94; BP 162/99; PULSE 119; PULSE 99; RESP 18; RESP 20; TEMP 36.7; O2SAT 98
== END 2024-10-25 20:59 | disposition home or self-care (01) ==
LOC: ER 21:02
PROVIDERS: Emergency Provider Emergency Medicine; PCP Internal Medicine
DX: H92.01 Otalgia, right ear (principal); Z96.22 Myringotomy tube(s) status
CPT/HCPCS: 96372; 99284; J1885; J2003

== ENCOUNTER 2024-11-23 17:14 | Emergency (ER) | payer MEDICAID, SELFPAY ==
[2024-11-23 17:32] VITALS: BP 181/93; PULSE 100; RESP 20; TEMP 36.6; O2SAT 95
--- NOTE | 2024-11-23 18:00 | DI.CT_ITS ---
Exam(s) CT HEAD FACIAL WO EXAM: CT HEAD FACIAL WO CLINICAL HISTORY: right tmj pain, persistent right ear infections. TECHNIQUE: Imaging Protocol: Axial computed tomography images with coronal and sagittal reformatted images were created and reviewed COMPARISON: CT HEAD WITHOUT CONTRAST from 09/08/2011 FINDINGS: CT Head: Ventricles and Extra axial spaces: Normal in size and morphology for the patient's age. Hemorrhage: None. Cerebral parenchyma: Normal. Midline shift: None. Brainstem/Cerebellum: Normal. Calvarium: Normal. Visualized Paranasal sinuses/Mastoids: There is a mucous retention cyst or polyp in the left maxillar y sinus. The remaining visualized paranasal sinuses are clear. Soft Tissues: Unremarkable. CT Face: Facial Bones: No definite fracture is noted in facial bones. Sinuses and Mastoids: There is a mucous retention cyst or polyp in the left maxillary sinus. The re maining visualized paranasal sinuses are clear. Globes, extraocular muscles, optic nerves and retrobulbar fat: Normal. Upper aerodigestive tract: Normal. Mandible and bilateral temporomandibular joints: Normal. Soft tissues: Normal. IMPRESSION: 1. No acute intracranial process. 2. The temporomandibular joints are unremarkable. 3. There is a large mucous retention cyst or polyp in the left maxillary sinus. The remaining visual ized paranasal sinuses and mastoid air cells are clear. 4. No acute facial fracture. RADIATION DOSE DELIVERED: !Error Total DLP DATA REPOSITORY: All CT scans at this facility are submitted to the National Radiology Data Registry (NRDR) Dose Index Registry (DIR) with the [employer] (A[employer]). RADIATION OPTIMIZATION: All CT scans at this facility use at least one of these dose optimization te chniques: automated exposure control; mA and/or kV adjustment per patient size (includes targeted exa ms where dose is matched to clinical indication); or iterative reconstruction.
[2024-11-23] MEDS: Acetaminophen 500 MG TAB 1000 MG PO (18:23)
[2024-11-23] MEDS: Ibuprofen 800 MG TAB PO (18:23)
--- NOTE | 2024-11-23 19:25 | ED.GENADUL_ITS ---
Discharge Plan Disposition Patient Disposition: Home Condition: Good Discharge Details Clinical Impression: TMJ tenderness, right Primary Care Provider: Jermaine Wolfe ED Provider: Evelio Caldera Home Meds and New Rx's Prescriptions: New cyclobenzaprine 10 mg tablet 10 mg PO QHS Qty: 14 0RF No Action lithium carbonate 300 mg tablet extended release 1,200 mg PO DAILY olanzapine [Zyprexa] 10 mg tablet 5 mg PO DAILY lorazepam 2 MG tablet 2 mg PO BID Patient Comments: 12/01/17-0.5mg PO BID per pt. metformin 750 mg tablet extended release 24 hr 750 mg PO ONCE Discharge Instructions Instructions: Temporomandibular joint (TMJ) disorders, TMJ Exercises Additional Instructions: At this time your CAT scan has returned, and shows no evidence of significant abnormality, or infection. Thankfully your clinical exam also does not show any active infection in your ear or around your teeth. As we discussed together I am concerned that the current symptoms that you are feeling today are secondary to irritation at your temporomandibular joint. Please perform the stretches that we discussed together multiple times throughout the day. Please apply ice frequently to your jaw. Please continue to take 1000 mg of Tylenol every 6 hours. Please apply the Voltaren gel every 6 hours. Please take the cyclobenzaprine at night before bed to help relax the muscle and to help reduce grinding. If you notice any worsening of your symptoms, or any new symptoms such as vomiting, diarrhea, fever, chills, shortness of breath, chest pain, numbness, weakness, or fainting , please return immediately to the emergency department for reevaluation. Please follow up with your primary care provider and your ENT specialist as soon as possible for reassessment and reevaluation. As always, it was a pleasure participating in your medical care today. Referrals: Jermaine Wolfe [Primary Care Provider] - [facility] General Date/Time Provider Initiated Documentation: 11/23/24 17:24 . HPI Narrative: This is a pleasant 39-year-old male with a past medical history of recurrent otitis media who has gotten multiple tympanostomy tubes because of this, and currently has a right-sided tympanostomy tube in place as done by the ENT office of Dr. Corey in [place]. He presents today for evaluation of pain at his right temporomandibular joint. Patient states that he has chronically had pain between his ears and around his jaw for years, however this pain has gotten slightly worse than normal. He states that normally he has pain in the ear but now it seems to be located right at the top component of his jaw. Worse with movement of his jaw, he feels a fluid and grinding like sensation with movement of his jaw in that area. He denies fever or chills. He denies any falls or trauma. He has been taking Tylenol but no ibuprofen secondary to his regular lithium use. He is not had a chance or opportunity to follow-up with ENT or his PCP about this yet. No other complaints at this time. No other modifying factors. Related Data Home Medications ?Medication ?Instructions ?Recorded ?Confirmed lorazepam 2 mg tablet 2 mg PO BID 09/25/13 11/23/24 lithium carbonate 300 mg 1,200 mg PO DAILY 05/07/22 11/23/24 tablet,extended release metformin 750 mg tablet,extended 750 mg PO ONCE 09/15/23 11/23/24 release 24 hr olanzapine 10 mg tablet (Zyprexa) 5 mg PO DAILY 11/30/23 11/23/24 cyclobenzaprine 10 mg tablet 10 mg PO QHS #14 tabs 11/23/24 Previous Rx's ?Medication ?Instructions ?Recorded cyclobenzaprine 10 mg tablet 10 mg PO QHS #14 tabs 11/23/24 Allergies Allergy/AdvReac Type Severity Reaction Status Date / Time banana (Banana) AdvReac unknown Verified 11/23/24 17:38 General Stated Complaint: EarProblem SHAVON: 3 Exam Narrative Exam Narrative: 1.Const: Well-nourished, Well-developed, appearing stated age 2.Eyes: PERRL, no conjunctival injection, and symmetrical lids. 3.ENT: Atraumatic external nose and ears. Moist MM. Neck: Symmetric, trachea midline, No thyromegaly. Mild grinding noted at the right TMJ, tenderness over the TMJ itself. No tenderness over the mastoid process on the right, or the ear. Tympanostomy tubes in place on the right, no erythema or drainage. Left tympanic membrane is trinh and pearly with no redness erythema or drainage or fluid. Patient is able to open and close his jaw without signs of dislocation. No evidence of periapical abscess, or dental abnormality. No neck stiffness or meningeal signs. 4.CVS: +S1/S2, Peripheral pulses 2+ and equal in all extremities. Brisk capillary refill in all extremities. 5.RESP: Unlabored respiratory effort. Clear to auscultation bilaterally. No wheezes rales or rhonchi 6.GI: Soft, Nontender/Nondistended, No hepatosplenomegaly. No guarding or rebound. 7.MSK: Normocephalic/Atraumatic, Extremities w/o deformity or ttp No cyanosis or clubbing, Normal movement of all extremities 8.Skin: Warm, Dry. No rashes or lesions. 9.Neuro: relief pharmacist II-XII grossly intact. Sensation grossly intact, no focal neurologic deficits. 10.Psych: (AAO) x3. Appropriate mood and affect Course Vital Signs Vital signs: Vital Signs Temperature 36.6 C 11/23/24 17:32 Pulse 100 H 11/23/24 17:32 Respiratory Rate 20 11/23/24 17:32 Blood Pressure 181/93 H 11/23/24 17:32 Pulse Oximetry 95 11/23/24 17:32 Temperature 36.6 C 11/23/24 17:32 Temperature Source Oral 11/23/24 17:32 Pulse 100 H 11/23/24 17:32 Respiratory Rate 20 11/23/24 17:32 Blood Pressure 181/93 H 11/23/24 17:32 Blood Pressure Position Sitting 11/23/24 17:32 Pulse Oximetry 95 11/23/24 17:32 Oxygen Delivery Method Room Air 11/23/24 17:32 Oxygen Flow Rate 0 11/23/24 17:32 Pain Level 8 11/23/24 17:37 Medical Decision Making This is a pleasant 39-year-old male with a past medical history of recurrent otitis media who has gotten multiple tympanostomy tubes because of this, and currently has a right-sided tympanostomy tube in place as done by the ENT office of Dr. Corey in [place]. He presents today for evaluation of pain at his right temporomandibular joint. Patient states that he has chronically had pain between his ears and around his jaw for years, however this pain has gotten slightly worse than normal. He states that normally he has pain in the ear but now it seems to be located right at the top component of his jaw. Worse with movement of his jaw, he feels a fluid and grinding like sensation with movement of his jaw in that area. He denies fever or chills. He denies any falls or trauma. He has been taking Tylenol but no ibuprofen secondary to his regular lithium use. He is not had a chance or opportunity to follow-up with ENT or his PCP about this yet. No other complaints at this time. No other modifying factors. Physical exam demonstrates mild grinding noted at the right TMJ, tenderness over the TMJ itself. No tenderness over the mastoid process on the right, or the ear. Tympanostomy tubes in place on the right, no erythema or drainage. Left tympanic membrane is trinh and pearly with no redness erythema or drainage or fluid. Patient is able to open and close his jaw without signs of dislocation. No evidence of periapical abscess, or dental abnormality. No neck stiffness or meningeal signs. Concern is primarily for TMJ arthritis versus joint irritation secondary to his chronic recurrent ear etiologies potentially causing masseter spasm, referred pain, or from potential grinding at night. Symptoms appear less likely to be m astoiditis. However patient states that he has not had any intracranial imaging or facial imaging in the past. Low likelihood but potential concern for chronic mastoiditis versus chronic intraosseous abscess that could be potentiating recurrent symptomatology. CT imaging was ordered and shows no evidence of acute intercranial process, TMJ joints are relatively unremarkable. No other acute abnormality otherwise. No evidence of infection or significant dental caries. Stretching exercises were performed with the patient for TMJ and his masseter muscle, he did have improvement of his symptoms with this. At this time I suspected that although there is certainly chronic ear infection components, there is no acute evidence of that now and his current symptomatology is secondary to temporomandibular joint irritation. Will recommend Voltaren gel topically, daily Tylenol, ice, and regular TMJ stretching exercises. Discussed red flags for which to return, and the importance of close PCP and ENT follow- up. I have extensively reviewed the treatment plan and discharge instructions with the patient. I have addressed all patient concerns at this time. The patient was made aware of what symptoms to monitor for that would warrant a return to the emergency department. Discussed the plan with the patient, they demonstrate verbal understanding and agreement with our assessment and plan at this time. The documentation in this chart was dictated using [employer] dictation software. Please excuse any dictation errors. FINDINGS: CT Head: Ventricles and Extra axial spaces: Normal in size and morphology for the patient's age. Hemorrhage: None. Cerebral parenchyma: Normal. Midline shift: None. Brainstem/Cerebellum: Normal. Calvarium: Normal. Visualized Paranasal sinuses/Mastoids: There is a mucous retention cyst or polyp in the left maxillary sinus. The remaining visualized paranasal sinuses are clear. Soft Tissues: Unremarkable. CT Face: Facial Bones: No definite fracture is noted in facial bones. Sinuses and Mastoids: There is a mucous retention cyst or polyp in the left maxillary sinus. The remaining visualized paranasal sinuses are clear. Globes, extraocular muscles, optic nerves and retrobulbar fat: Normal. Upper aerodigestive tract: Normal. Mandible and bilateral temporomandibular joints: Normal. Soft tissues: Normal. IMPRESSION: 1. No acute intracranial process. 2. The temporomandibular joints are unremarkable. 3. There is a large mucous retention cyst or polyp in the left maxillary sinus. The remaining visualized paranasal sinuses and mastoid air cells are clear. 4. No acute facial fracture. Quality:[facility] Health Related Social Needs: No Data to Display [facility]LY [facility] All Active Problems (Updated 11/23/24 @ 19:27 by Evelio Caldera DO) TMJ tenderness, right (Acute) Ear pain, right (Acute) Referred otalgia of both ears (Acute) Testicular pain (Acute) Pain (Acute) Surgical History Hx of vasectomy Social History Smoking/Tobacco Use Status: Former Tobacco Use Smoking risk assessment performed?: Yes Alcohol Intake: current Alcohol Intake frequency: holidays/special occasions only Drug use: Current Sobriety Substance use type: marijuana Housing: house Do you feel safe at home: Yes Do you feel safe in your relationship?: Yes
[2024-11-23] MEDS: Cyclobenzaprine 10 MG TAB, 3 TABS/BTL PO (19:36)
[2024-11-23] MEDS: Diclofenac 1% Gel 100 GM TUBE TP (19:37)
== END 2024-11-23 19:36 | disposition home or self-care (01) ==
PROVIDERS: Emergency Provider Student in an Organized Health Care Education/Training Program; PCP Internal Medicine
DX: M26.621 Arthralgia of right temporomandibular joint (principal); H92.01 Otalgia, right ear; K08.89 Other specified disorders of teeth and supporting structures; Z87.891 Personal history of nicotine dependence
CPT/HCPCS: 99284; 70450; 70486